=== PATIENT | female | born 1985 | race Caucasian/White ===

== ENCOUNTER 2017-09-26 15:14 | Emergency (ER) | payer OTHER ==
[2017-09-26] MEDS ORDERED: FAMOTIDINE IV 20 MG/12 ML VIAL IVPB ONE (15:22)
--- NOTE | 2017-09-26 15:22 | PDOC ---
Rapid Medical Evaluation Medical Evaluation: 09/26/17 15:16 First time she took naproxen approximately at 13:00, and now with allergic reaction. EMS reports angioedema to face. Reports itching to body and tongue. Given 10mg Dexamethasone and Bendadryl 50mg IV by EMS for swelling of face. Pt. took 50mg benadryl po at home. Exam: No acute respiratory distress, swelling to eyes. CTAB. Pt. will proceed to ED for further evaluation.
[2017-09-26 15:24] VITALS: TEMP 98; BMI 48.2
[2017-09-26] MEDS ORDERED: SODIUM CHLORIDE 1,000 ML IV STA (15:24)
[2017-09-26] MEDS ORDERED: FAMOTIDINE 20 MG/50 ML IVPB 20 MG/50 ML MG IVPB ONE (15:26)
[2017-09-26] MEDS ORDERED: DEXAMETHASONE SOD PHOSPHATE 10 MG/1 ML VIAL ONE (15:32)
[2017-09-26] MEDS ORDERED: methylPREDNISolone NA SUCC 125 MG/2 ML VIAL IVPUSH ONE (16:12)
--- NOTE | 2017-09-26 16:18 | PDOC ---
History of Present Illness - General Chief Complaint: Allergic Reaction Stated Complaint: ALLERGIC REACTION Time Seen by Provider: 09/26/17 15:23 History Source: Patient - History of Present Illness Timing/Duration: 1-3 hours Past History - Past Medical History Allergies/Adverse Reactions: Allergies Allergy/AdvReac Type Severity Reaction Status Date / Time aspirin Allergy Difficulty Verified 09/26/17 15:21 Breathing naproxen Allergy Difficulty Verified 09/26/17 15:21 Breathing NSAIDS (Non-Steroidal Allergy Difficulty Verified 09/26/17 15:21 Anti-Inflamma Breathing Home Medications: Ambulatory Orders EPINEPHrine (EPI-PEN 0.3MG) [Epipen 0.3MG -] 0.3 mg IM ASDIR #2 pens 09/26/17 Famotidine [Pepcid] 20 mg PO DAILY #14 tablet 09/26/17 Prednisone [Deltasone] 20 mg PO DAILY #8 tablet 09/26/17 Asthma: Yes COPD: No - Suicide/Smoking/Psychosocial Hx Smoking History: Never smoked Have you smoked in the past 12 months: No Information on smoking cessation initiated: No Hx Alcohol Use: No Drug/Substance Use Hx: No Substance Use Type: None Review of Systems - Review of Systems HEENTM: No: Throat Pain Respiratory: No: Shortness of Breath, Stridor, Wheezing Cardiac (ROS): No: Chest Pain *Physical Exam - Vital Signs Last Vital Signs Temp Pulse Resp BP Pulse Ox 98.0 F 66 18 123/62 100 09/26/17 15:21 09/26/17 15:21 09/26/17 15:21 09/26/17 15:21 09/26/17 15:21 - Physical Exam General Appearance: Yes: Appropriately Dressed. No: Apparent Distress HEENT: positive: Normal Voice, Other (minimal periorbital edema b/l, no lip/ tongue swelling, oropharynx clear). negative: Muffled/Hoarse voice Neck: positive: Supple. negative: Decreased range of motion, Lymphadenopathy (R ) Respiratory/Chest: positive: Lungs Clear, Normal Breath Sounds. negative: Respiratory Distress, Wheezing Cardiovascular: positive: Regular Rate, S1, S2 Integumentary: negative: Rash Moderate Sedation - Procedure Monitoring Vital Signs: Vital Signs Temp Pulse Resp BP Pulse Ox 98.0 F 66 18 123/62 100 09/26/17 15:21 09/26/17 15:21 09/26/17 15:21 09/26/17 15:21 09/26/17 15:21 ED Treatment Course - Medications Given in the ED: ED Medications Discontinued Medications Generic Name Dose Route Start Last Admin Trade Name Devorah PRN Reason Stop Dose Admin Famotidine 20 mg in 12 mls @ 144 mls/hr 09/26/17 15:22 09/26/17 15:33 Pepcid 20 Mg/12 Ml Push IVPB 09/26/17 15:26 144 mls/hr ONCE ONE Administration Medical Decision Making - Medical Decision Making 09/26/17 16:13 31-year-old female, morbidly obese, status post lower back surgery remotely with chronic back pain, asthma, here with facial swelling that started at 1:30 today after taking naproxen for the first time for her chronic back pain. Patient states she was seen by her PMD 3 days ago who prescribed her naproxen though she alerted MD of her aspirin allergy (facial swelling/angioedema). As per patient, MD informed her that though naproxen is in the same family of asa, that pt should not have an adverse rxn to med. Patient denies any voice changes , throat tightness, tongue swelling, stridor, wheezing, SOB, CP or rash at this time See exam Allergic rxn 2/2 naproxen Known allergy to asa (swelling/angioedema) Stable w/ no stridor and clear chest/lungs Received benadryl, pepcid and IVF at triage -solumedrol -placed on monitor for observation 09/26/17 16:18 09/26/17 18:40 After approximately 2-1/2 hrs of observation, patient remained stable with significant improvement of her periorbital swelling. Clear oropharynx, no stridor and clear chest, lungs. Patient well enough to be discharged with appropriate prescription and EpiPen. Strict return precautions given. Had lengthy discussion with patient, explaining that in the future, she cannot take any NSAIDs including Motrin and naproxen *DC/Admit/Observation/Transfer Diagnosis at time of Disposition: Allergic reaction Qualifiers: Encounter type: initial encounter Qualified Code(s): T78.40XA - Allergy, unspecified, initial encounter - Discharge Dispostion Disposition: HOME Condition at time of disposition: Improved - Prescriptions Prescriptions: EPINEPHrine (EPI-PEN 0.3MG) [Epipen 0.3MG -] 0.3 mg IM ASDIR #2 pens Famotidine [Pepcid] 20 mg PO DAILY #14 tablet Prednisone [Deltasone] 20 mg PO DAILY #8 tablet - Referrals Referrals: Juan Carlos Walls MD [Primary Care Provider] - - Patient Instructions Printed Discharge Instructions: DI for Eye Allergic Reaction Additional Instructions: Por favor, tome pepcid y esteroides a partir de maana, ya que recibi la primera dosis de ambos en ED hoy NO tome naproxeno o motrin en el futuro! Use epipen michael se indica en el empaque para la dificultad para respirar, el cierre de la garganta o las sibilancias y llame al [address] pronto michael pueda Por favor regrese para el empeoramiento de los sntomas - Post Discharge Activity
[2017-09-26] MEDS ORDERED: methylPREDNISolone NA SUCC 125 MG/2 ML VIAL ONE (16:28)
[2017-09-26 18:47] VITALS: BP 105/36; PULSE 69
== END 2017-09-26 18:54 | disposition home or self-care (01) ==
LOC: JER 15:14
PROC: 3E033GC Introduction of Other Therapeutic Substance into Peripheral Vein, Percutaneous Approach (ICD-10-PCS; principal; 2017-09-26)
PROC: 3E0333Z Introduction of Anti-inflammatory into Peripheral Vein, Percutaneous Approach (ICD-10-PCS; 2017-09-26)
DX: T78.40XA Allergy, unspecified, initial encounter (principal); T78.3XXA Angioneurotic edema, initial encounter; J45.909 Unspecified asthma, uncomplicated
CPT/HCPCS: 96374; 96375; 99283-25; J7030

== ENCOUNTER 2018-02-07 19:50 | Inpatient (IN) | payer OTHER ==
--- NOTE | 2018-02-07 20:02 | PDOC ---
*Physical Exam - Vital Signs Last Vital Signs Temp Pulse Resp BP Pulse Ox 98 F 74 18 123/67 98 02/07/18 19:58 02/07/18 19:58 02/07/18 19:58 02/07/18 19:58 02/07/18 19:58
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
[2018-02-07] MEDS ORDERED: diazePAM 5 MG TABLET PO ONE ×2 (20:34→23:19)
[2018-02-07] MEDS ORDERED: ACETAMINOPHEN 500 MG TABLET (FP) PO ONE (20:34)
[2018-02-07] MEDS ORDERED: traMADol HCL 50 MG TABLET PO ONE (20:34)
[2018-02-07] MEDS ORDERED: LIDOCAINE 5% TOPICAL PATCH TP ONE (20:35)
[2018-02-07] MEDS ORDERED: predniSONE 20 MG TABLET (UD) PO ONE (20:35)
[2018-02-07] MEDS ORDERED: predniSONE 20 MG TABLET (UD) ONE (20:42)
[2018-02-07] MEDS ORDERED: traMADol HCL 50 MG TABLET ONE (20:43)
[2018-02-07] MEDS ORDERED: ACETAMINOPHEN 325 MG TABLET (FP) ONE (20:43)
[2018-02-07] MEDS ORDERED: diazePAM 5 MG TABLET ONE (20:43)
[2018-02-07] MEDS ORDERED: LIDOCAINE 5% TOPICAL PATCH ONE (20:43)
[2018-02-07] MEDS ORDERED: oxyCODONE HCL 5 MG TABLET PO ONE ×2 (21:42→23:19)
[2018-02-07] MEDS ORDERED: oxyCODONE HCL 5 MG TABLET ONE (21:48)
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
[2018-02-07] MEDS: LIDOCAINE PATCH REMOVAL MC SCH (22:29)
[2018-02-08] MEDS ORDERED: oxyCODONE HCL 5 MG TABLET ONE (00:46)
[2018-02-08] MEDS ORDERED: diazePAM 5 MG TABLET ONE (00:46)
[2018-02-08 03:01] LABS: BASO % 0.3 % (0-2.0); EOS % 0.2 % (0-4.5); HEMATOCRIT 37.5 % (32.4-45.2); HEMOGLOBIN 12.3 GM/dL (10.7-15.3); LYMPH % 7.2 % (8-40); MCH 28.4 pg (25.7-33.7); MCHC 32.8 g/dl (32.0-36.0); MEAN CELL VOLUME 86.7 fl (80-96); MEAN PLT VOLUME 7.7 fl (7.5-11.1); MONO % 0.8 % (3.8-10.2); NEUT % 91.5 % (42.8-82.8); PLATELET COUNT 479 K/MM3 (134-434); RBC 4.32 M/mm3 (3.60-5.2); RDW 13.6 % (11.6-15.6)
[2018-02-08 03:20] LABS: ANION GAP 8 MMOL/L (8-16); BLOOD UREA NITROGEN 12 mg/dL (7-18); CALCIUM 9.1 mg/dL (8.5-10.1); CHLORIDE 104 mmol/L (98-107); CO2 24 mmol/L (21-32); CREATININE 0.7 mg/dL (0.55-1.3); GLUCOSE,RANDOM 201 mg/dL (74-106); POTASSIUM 4.7 mmol/L (3.5-5.1); SODIUM 135 mmol/L (136-145)
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
[2018-02-08] MEDS ORDERED: morphine SO4 SUSTAINED ACTING 30 MG TABLET.SA PO ONE (05:15)
[2018-02-08 05:52] LABS: PLATELET ESTIMATE SLT INCREASE
[2018-02-08] MEDS ORDERED: ACETAMINOPHEN 325 MG TABLET (FP) PO PRN (06:22)
[2018-02-08] MEDS: BACLOFEN 10 MG TABLET (FP) PO SCH ×3 (06:47→21:02)
[2018-02-08] MEDS: HEPARIN NA (PORCINE) 5,000 UNITS/ML 1ML VIAL SQ SCH ×3 (06:47→21:04)
--- NOTE | 2018-02-08 07:29 | PN ---
Teaching Attending Note Name of Resident: Marko Bailey ATTENDING PHYSICIAN STATEMENT I saw and evaluated the patient. I reviewed the resident's note and discussed the case with the resident. I agree with the resident's findings and plan as documented. 32 y/o morbidly obese female with h/o back pain presented to ED c/o severe back pain after bending down. Patient has paraspinal tenderness in lumbar sacral region, without paresthesia, deficit in motor function or sensation. no incontinence. Admitted for intractable back pain- baclofen 10mg TID, Morphine ER 30mg daily and percocet q6h prn.
[2018-02-08 10:27] LABS: BASO % 0.1 % (0-2.0); LYMPH % 9.8 % (8-40); MCH 28.8 pg (25.7-33.7); MCHC 33.3 g/dl (32.0-36.0); MEAN CELL VOLUME 86.5 fl (80-96); MEAN PLT VOLUME 8.2 fl (7.5-11.1); MONO % 2.6 % (3.8-10.2); NEUT % 87.5 % (42.8-82.8); PLATELET COUNT 469 K/MM3 (134-434); RBC 4.16 M/mm3 (3.60-5.2); RDW 13.7 % (11.6-15.6)
[2018-02-08 10:58] LABS: ANION GAP 9 MMOL/L (8-16); BLOOD UREA NITROGEN 10 mg/dL (7-18); CALCIUM 9.1 mg/dL (8.5-10.1); CHLORIDE 103 mmol/L (98-107); CO2 24 mmol/L (21-32); CREATININE 0.6 mg/dL (0.55-1.3); GLUCOSE,RANDOM 194 mg/dL (74-106); MAGNESIUM 2.3 mg/dL (1.8-2.4); PHOSPHOROUS 3.6 mg/dL (2.5-4.9); POTASSIUM 4.4 mmol/L (3.5-5.1); SODIUM 136 mmol/L (136-145)
[2018-02-08 11:00] LABS: INR 1.13 (0.83-1.09); PROTHROMBIN TIME (PATIENT) 13.4 SEC (9.7-13.0)
[2018-02-08 11:02] LABS: ACTIVATED PTT 26.8 SECONDS (25.2-36.5)
[2018-02-08] MEDS: oxyCODONE HCL 5 MG TABLET PO PRN (11:07)
--- NOTE | 2018-02-08 12:50 | PN ---
Physical Exam: SUBJECTIVE: Patient seen and examined at the bedside. sitting in chair in no acute distress. OBJECTIVE: lumbar spine w/o ordered Vital Signs Period Temp Pulse Resp BP Sys/Bustillos Pulse Ox Last 24 Hr 98 F-98.7 F 69-74 18-18 110-124/49-67 97-99 GENERAL: The patient is awake, alert, and fully oriented, in no acute distress. HEAD: Normal with no signs of trauma. EYES: PERRL, extraocular movements intact, sclera anicteric, conjunctiva clear. No ptosis. ENT: Ears normal, nares patent, oropharynx clear without exudates, moist mucous membranes. NECK: Trachea midline, full range of motion, supple. LUNGS: Breath sounds equal, clear to auscultation bilaterally, no wheezes, no crackles, no accessory muscle use. HEART: Regular rate and rhythm, ABDOMEN: Soft, nontender, nondistended, normoactive bowel sounds, no guarding, no rebound, no hepatosplenomegaly, no masses. EXTREMITIES: 2+ pulses, warm, well-perfused, no edema. NEUROLOGICAL: Cranial nerves II through XII grossly intact. Normal speech, gait not observed. PSYCH: Normal mood, normal affect. SKIN: Warm, dry, normal turgor, no rashes or lesions noted Laboratory Results - last 24 hr 02/08/18 02/08/18 02/08/18 02:50 02:50 02:50 WBC 12.0 H RBC 4.32 Hgb 12.3 Hct 37.5 MCV 86.7 MCH 28.4 MCHC 32.8 RDW 13.6 Plt Count 479 H MPV 7.7 Absolute Neuts (auto) 11.0 H Total Counted 100 Neutrophils % 91.5 H Neutrophils % (Manual) 93.0 H Band Neutrophils % 1.0 Lymphocytes % 7.2 L Lymphocytes % (Manual) 5.0 L Monocytes % 0.8 L Monocytes % (Manual) 1 L Eosinophils % 0.2 Basophils % 0.3 Nucleated RBC % 0 Platelet Estimate Slt increase Platelet Comment No clumping noted PT with INR INR PTT (Actin FS) Sodium 135 L Potassium 4.7 Chloride 104 Carbon Dioxide 24 Anion Gap 8 BUN 12 Creatinine 0.7 Creat Clearance w eGFR > 60 Random Glucose 201 H Calcium 9.1 Phosphorus Magnesium Serum , Qual Negative 02/08/18 02/08/18 02/08/18 09:45 09:45 09:45 WBC 10.0 RBC 4.16 Hgb 12.0 Hct 36.0 MCV 86.5 MCH 28.8 MCHC 33.3 RDW 13.7 Plt Count 469 H MPV 8.2 Absolute Neuts (auto) 8.7 H Total Counted Neutrophils % 87.5 H Neutrophils % (Manual) Band Neutrophils % Lymphocytes % 9.8 D Lymphocytes % (Manual) Monocytes % 2.6 L D Monocytes % (Manual) Eosinophils % 0.0 D Basophils % 0.1 Nucleated RBC % 0 Platelet Estimate Platelet Comment PT with INR 13.40 H INR 1.13 H PTT (Actin FS) 26.8 Sodium 136 Potassium 4.4 Chloride 103 Carbon Dioxide 24 Anion Gap 9 BUN 10 Creatinine 0.6 Creat Clearance w eGFR > 60 Random Glucose 194 H Calcium 9.1 Phosphorus 3.6 Magnesium 2.3 Serum , Qual Active Medications Generic Name Dose Route Start Last Admin Trade Name Freq PRN Reason Stop Dose Admin Acetaminophen 325 mg 02/08/18 06:22 02/08/18 11:06 Tylenol - PO 325 mg Q6H PRN Administration PAIN LEVEL 6-10 Baclofen 10 mg 02/08/18 06:00 02/08/18 06:47 Lioresal - PO 10 mg TID [facility] Administration Heparin Sodium (Porcine) 5,000 unit 02/08/18 06:00 02/08/18 06:47 Heparin - SQ 5,000 unit TID [facility] Administration Miscellaneous 1 each 02/07/18 22:00 02/07/18 22:29 Lidoderm Patch Removal MC Not Given DAILY@2200 [facility] Oxycodone HCl 5 mg 02/08/18 06:22 02/08/18 11:07 Roxicodone - PO 5 mg Q6H PRN Administration PAIN LEVEL 6-10 ASSESSMENT/PLAN: Patient is a 32 year old female with a significant past medical history of obesity, asthma and chronic lower back pain since the age of 18. She presented to the ED on 02/07/18 for c.o of intractable back pain that radiates to her lower extremities. She is having difficulty with all her ADLs secondary to pain. Neuro: Low Back Pain/Lumbar Radiculopathy/difficulty with ambulation Patient has had back pain for years. Had spinal surgery at the age of 19 in [place]. Had recent MRI 7/29/18 that shows: -L3-L4 posterior central disc herniation -L4-L5 broad-based posterior disc herniation with left foraminal extension impinging traversing left L5 and exiting L4 nerve roots. -L5-S1 3mm grade 1 anterolisthesis, posterior disc bulge with bilateral foraminal extension narrowing. -Facet hypertrophy at L5-S1 Will order Baclofen 10mg TID Flexiril Oxycodone physical therapy lumbar spine mri w/o contrast neurosurgery consult. Pulm: Asthma. continue home medications. no in acute exacerbations. fen/prophy tolerating PO monitor electrolytes low salt diet ambulation/PT LOS <48 hours, hold off of a/c full code Visit type - Emergency Visit Emergency Visit: Yes ED Registration Date: 02/07/18 Care time: The patient presented to the Emergency Department on the above date and was hospitalized for further evaluation of their emergent condition. - New Patient This patient is new to me today: Yes Date on this admission: 02/08/18 - Critical Care Critical Care patient: No - Discharge Referral Referred to [facility] Med P.C.: No
[2018-02-08] MEDS ORDERED: traMADol HCL 50 MG TABLET PO PRN (13:56)
[2018-02-08] MEDS ORDERED: PATIENT'S OWN MEDICATION (NON-FORMULARY) (Fluticasone Propionate [Flovent Diskus] 50 MCG) IH SCH (14:00)
[2018-02-08] MEDS: DOCUSATE SODIUM 100 MG CAPSULE (FP) PO SCH ×2 (14:41→21:04)
--- NOTE | 2018-02-08 17:18 | CONSULT ---
Consult - text type - Consultation Consultation Note: NEUROSURGERY CONSULTATION Vicky Corral is a 32 year old Latin female who has a history of Lumbar Laminectomy at L5S1 performed at the age of 19 in [place]. Although she describes severe radicular pain prior to the surgeyr which was somewhat relieved, she has had a long history of back and neck pains as well as intermittent radicular pain. She was in her relative state of good health until 5 days ago when she noticed severe Right gluteal pain which radiates down her Right leg. She has apparently been seeing a variety of pain management physicians and had a Lumbar MRI in November which showed multilevel disease in the Lumbar spine (by report, no images available for review). The patient denies bowel/bladder difficulties and is able to move her legs in bed. Patient will ask her family to bring in the MRI CD, however, this will not reveal the pathology which progressed acutely in the last 5 days and prompted this hospitalization. I feel that we need a new MRI Lumbar without contrast and will discuss treatment options with the patient once this can be compared with the November imaging.
[2018-02-08] MEDS ORDERED: QUEtiapine FUMARATE 25 MG TABLET (FP) ONE (20:26)
[2018-02-08] MEDS: SENNOSIDES 8.6MG TABLET (FP) PO SCH (21:02)
[2018-02-08] MEDS: QUEtiapine FUMARATE 50 MG TABLET PO SCH (21:02)
[2018-02-08] MEDS: MONTELUKAST NA 10 MG TABLET PO SCH (21:03)
[2018-02-08] MEDS: RANITIDINE HCL 150 MG TABLET (FP) PO SCH (21:03)
[2018-02-08] MEDS: POLYETHYLENE GLYCOL 3350 119 GM BTL PO SCH (21:04)
[2018-02-08] MEDS: LIDOCAINE PATCH REMOVAL MC SCH (23:27)
[2018-02-09] MEDS: HEPARIN NA (PORCINE) 5,000 UNITS/ML 1ML VIAL SQ SCH ×3 (06:22→22:00)
[2018-02-09] MEDS: DOCUSATE SODIUM 100 MG CAPSULE (FP) PO SCH ×3 (06:22→21:58)
[2018-02-09] MEDS: BACLOFEN 10 MG TABLET (FP) PO SCH ×3 (06:22→21:59)
[2018-02-09 08:21] LABS: BASO % 0.5 % (0-2.0); EOS % 1.8 % (0-4.5); HEMATOCRIT 33.5 % (32.4-45.2); LYMPH % 32.3 % (8-40); MCH 28.9 pg (25.7-33.7); MCHC 32.9 g/dl (32.0-36.0); MEAN PLT VOLUME 8.1 fl (7.5-11.1); MONO % 7.3 % (3.8-10.2); NEUT % 58.1 % (42.8-82.8); PLATELET COUNT 344 K/MM3 (134-434); RBC 3.81 M/mm3 (3.60-5.2); RDW 13.7 % (11.6-15.6); WHITE BLOOD COUNT 9.2 K/mm3 (4.0-10.0)
[2018-02-09 08:23] LABS: ALBUMIN 3.2 g/dl (3.4-5.0); ALK PHOS 58 U/L (45-117); ANION GAP 6 MMOL/L (8-16); BILIRUBIN,TOTAL 0.5 mg/dL (0.2-1); BLOOD UREA NITROGEN 16 mg/dL (7-18); CALCIUM 8.5 mg/dL (8.5-10.1); CHLORIDE 107 mmol/L (98-107); CO2 26 mmol/L (21-32); CREATININE 0.6 mg/dL (0.55-1.3); GLUCOSE,RANDOM 106 mg/dL (74-106); POTASSIUM 3.8 mmol/L (3.5-5.1); SGOT/AST 11 U/L (15-37); SGPT/ALT 22 U/L (13-61); SODIUM 139 mmol/L (136-145); TOT PROT 6.9 g/dl (6.4-8.2)
[2018-02-09] MEDS: oxyCODONE HCL 5 MG TABLET PO PRN (08:44)
--- NOTE | 2018-02-09 09:12 | PN ---
Progress Note (short form) - Note Progress Note: Patient sitting in chair with severe Right leg radicular pain. MRI pending. Family to bring prior imaging. Will review imaging and discuss plan of care with patient.
[2018-02-09] MEDS: POLYETHYLENE GLYCOL 3350 119 GM BTL PO SCH ×2 (09:51→22:02)
[2018-02-09] MEDS: LORATADINE 10 MG TABLET PO SCH (09:51)
[2018-02-09] MEDS: ESCITALOPRAM OXALATE 10 MG TABLET (FP) PO SCH (09:52)
[2018-02-09] MEDS: CYCLOBENZAPRINE HCL 10 MG TABLET (FP) PO PRN ×2 (10:24→21:59)
[2018-02-09] MEDS ORDERED: MAGNESIUM CITRATE 300 ML BOTTLE PO ONE (15:10)
[2018-02-09] MEDS ORDERED: PT OWN MED DRAWER 7, Y5N ONE (16:37)
[2018-02-09] MEDS: MORPHINE SULFATE 2 MG/ML VIAL IVPUSH PRN (16:43)
--- NOTE | 2018-02-09 17:59 | PN ---
Physical Exam: SUBJECTIVE: Patient seen and examined at the bedside. having back pain, crying in distress when mri unable to be complete secondary to body habitus as patient was unable to keep her arms above her head. OBJECTIVE: Vital Signs Period Temp Pulse Resp BP Sys/Bustillos Pulse Ox Last 24 Hr 98.0 F-98.6 F 59-76 18-20 91-117/40-71 95-98 GENERAL: The patient is awake, alert, and fully oriented, in no acute distress. HEAD: Normal with no signs of trauma. EYES: PERRL, extraocular movements intact, sclera anicteric, conjunctiva clear. No ptosis. ENT: Ears normal, nares patent, oropharynx clear without exudates, moist mucous membranes. NECK: Trachea midline, full range of motion, supple. LUNGS: Breath sounds equal, clear to auscultation bilaterally, no wheezes, no crackles, no accessory muscle use. HEART: Regular rate and rhythm, ABDOMEN: Soft, nontender, nondistended, normoactive bowel sounds, no guarding, no rebound, no hepatosplenomegaly, no masses. EXTREMITIES: 2+ pulses, warm, well-perfused, no edema. NEUROLOGICAL: Cranial nerves II through XII grossly intact. Normal speech, gait not observed. PSYCH: Normal mood, normal affect. SKIN: Warm, dry, normal turgor, no rashes or lesions noted Laboratory Results - last 24 hr 02/09/18 02/09/18 07:30 07:30 WBC 9.2 RBC 3.81 Hgb 11.0 Hct 33.5 MCV 88.0 MCH 28.9 MCHC 32.9 RDW 13.7 Plt Count 344 D MPV 8.1 Absolute Neuts (auto) 5.4 Neutrophils % 58.1 D Lymphocytes % 32.3 D Monocytes % 7.3 D Eosinophils % 1.8 D Basophils % 0.5 D Nucleated RBC % 0 Sodium 139 Potassium 3.8 Chloride 107 Carbon Dioxide 26 Anion Gap 6 L BUN 16 Creatinine 0.6 Creat Clearance w eGFR > 60 Random Glucose 106 Calcium 8.5 Total Bilirubin 0.5 AST 11 L ALT 22 Alkaline Phosphatase 58 Total Protein 6.9 Albumin 3.2 L Active Medications Generic Name Dose Route Start Last Admin Trade Name Freq PRN Reason Stop Dose Admin Acetaminophen 650 mg 02/08/18 13:56 Tylenol Oral Solution - PO BID PRN PAIN LEVEL 4 - 6 Baclofen 10 mg 02/08/18 06:00 02/09/18 15:05 Lioresal - PO 10 mg TID [facility] Administration Cyclobenzaprine HCl 5 mg 02/08/18 14:05 02/09/18 10:24 Flexeril - PO 5 mg BID PRN Administration BACK PAIN Docusate Sodium 100 mg 02/08/18 14:45 02/09/18 15:05 Colace - PO 100 mg TID [facility] Administration Escitalopram Oxalate 10 mg 02/09/18 10:00 02/09/18 09:52 Lexapro - PO 10 mg DAILY [facility] Administration Heparin Sodium (Porcine) 5,000 unit 02/08/18 06:00 02/09/18 15:05 Heparin - SQ 5,000 unit TID [facility] Administration Loratadine 10 mg 02/09/18 10:00 02/09/18 09:51 Claritin - PO 10 mg DAILY [facility] Administration Miscellaneous 1 each 02/07/18 22:00 02/08/18 23:27 Lidoderm Patch Removal MC Not Given DAILY@2200 [facility] Montelukast Sodium 10 mg 02/08/18 22:00 02/08/18 21:03 Singulair - PO 10 mg HS S[facility] Administration Morphine Sulfate 2 mg 02/09/18 15:08 02/09/18 16:43 Morphine Sulfate IVPUSH 2 mg Q6H PRN Administration PAIN LEVEL 7 - 10 Non-Formulary Medication 50 mcg 02/08/18 14:00 Fluticasone Propionate [Flovent Diskus] IH QID S[facility] Polyethylene Glycol 17 gm 02/08/18 22:00 02/09/18 09:51 Miralax (For Daily Use) - PO 17 gm BID S[facility] Administration Quetiapine Fumarate 50 mg 02/08/18 22:00 02/08/18 21:02 Seroquel - PO 50 mg HS S[facility] Administration Ranitidine HCl 150 mg 02/08/18 22:00 02/08/18 21:03 Zantac - PO 150 mg HS S[facility] Administration Senna 2 tab 02/08/18 22:00 02/08/18 21:02 Senna - PO 2 tab HS SUSY Administration ASSESSMENT/PLAN: Patient is a 32 year old female with a significant past medical history of obesity, asthma and chronic lower back pain since the age of 18. She presented to the ED on 02/07/18 for c.o of intractable back pain that radiates to her lower extremities. She is having difficulty with all her ADLs secondary to pain. Neuro: Low Back Pain/Lumbar Radiculopathy/difficulty with ambulation Patient has had back pain for years. Had spinal surgery at the age of 19 in [place]. Had recent MRI 12/03/17 that shows: -L3-L4 posterior central disc herniation -L4-L5 broad-based posterior disc herniation with left foraminal extension impinging traversing left L5 and exiting L4 nerve roots. -L5-S1 3mm grade 1 anterolisthesis, posterior disc bulge with bilateral foraminal extension narrowing. -Facet hypertrophy at L5-S1 Has ordered: Baclofen 10mg TID Flexiril Oxycodone physical therapy lumbar spine mri w/o contrast neurosurgery consult. Pulm: Asthma. continue home medications. no in acute exacerbations. fen/prophy tolerating PO monitor electrolytes low salt diet ambulation/PT Visit type - Emergency Visit Emergency Visit: Yes ED Registration Date: 02/09/18 Care time: The patient presented to the Emergency Department on the above date and was hospitalized for further evaluation of their emergent condition. - New Patient This patient is new to me today: No - Critical Care Critical Care patient: No - Discharge Referral Referred to [facility] Med P.C.: No
[2018-02-09] MEDS ORDERED: QUEtiapine FUMARATE 25 MG TABLET (FP) ONE (21:10)
[2018-02-09] MEDS: MONTELUKAST NA 10 MG TABLET PO SCH (21:58)
[2018-02-09] MEDS: RANITIDINE HCL 150 MG TABLET (FP) PO SCH (21:58)
[2018-02-09] MEDS: QUEtiapine FUMARATE 50 MG TABLET PO SCH (21:59)
[2018-02-09] MEDS: SENNOSIDES 8.6MG TABLET (FP) PO SCH (22:00)
[2018-02-09] MEDS: LIDOCAINE PATCH REMOVAL MC SCH (22:08)
[2018-02-10] MEDS: BACLOFEN 10 MG TABLET (FP) PO SCH ×3 (06:16→21:48)
[2018-02-10] MEDS: DOCUSATE SODIUM 100 MG CAPSULE (FP) PO SCH ×3 (06:16→21:45)
[2018-02-10] MEDS: HEPARIN NA (PORCINE) 5,000 UNITS/ML 1ML VIAL SQ SCH ×3 (06:16→21:44)
[2018-02-10] MEDS: MORPHINE SULFATE 2 MG/ML VIAL IVPUSH PRN ×2 (06:44→16:51)
--- NOTE | 2018-02-10 08:38 | PN ---
Physical Exam: SUBJECTIVE: Patient seen and examined, feels better. pain better controlled. OBJECTIVE: patient to have mri reattempted today. if unable to perform here, will attempt transfer to [facility]. [facility] transfer center called and case discussed. Vital Signs Period Temp Pulse Resp BP Sys/Bustillos Pulse Ox Last 24 Hr 98.2 F-98.7 F 66-82 18-18 103-119/40-71 98-98 GENERAL: The patient is awake, alert, and fully oriented, in no acute distress. HEAD: Normal with no signs of trauma. EYES: PERRL, extraocular movements intact, sclera anicteric, conjunctiva clear. No ptosis. ENT: Ears normal, nares patent, oropharynx clear without exudates, moist mucous membranes. NECK: Trachea midline, full range of motion, supple. LUNGS: Breath sounds equal, clear to auscultation bilaterally, no wheezes, no crackles, no accessory muscle use. HEART: Regular rate and rhythm, ABDOMEN: Soft, nontender, nondistended, normoactive bowel sounds, no guarding, no rebound, no hepatosplenomegaly, no masses. EXTREMITIES: 2+ pulses, warm, well-perfused, no edema. NEUROLOGICAL: Cranial nerves II through XII grossly intact. Normal speech, gait not observed. PSYCH: Normal mood, normal affect. SKIN: Warm, dry, normal turgor, no rashes or lesions noted Laboratory Results - last 24 hr 02/09/18 07:30 WBC 9.2 RBC 3.81 Hgb 11.0 Hct 33.5 MCV 88.0 MCH 28.9 MCHC 32.9 RDW 13.7 Plt Count 344 D MPV 8.1 Absolute Neuts (auto) 5.4 Neutrophils % 58.1 D Lymphocytes % 32.3 D Monocytes % 7.3 D Eosinophils % 1.8 D Basophils % 0.5 D Nucleated RBC % 0 Active Medications Generic Name Dose Route Start Last Admin Trade Name Freq PRN Reason Stop Dose Admin Acetaminophen 650 mg 02/08/18 13:56 Tylenol Oral Solution - PO BID PRN PAIN LEVEL 4 - 6 Baclofen 10 mg 02/08/18 06:00 02/10/18 06:16 Lioresal - PO 10 mg TID [facility] Administration Cyclobenzaprine HCl 5 mg 02/08/18 14:05 02/09/18 21:59 Flexeril - PO 5 mg BID PRN Administration BACK PAIN Docusate Sodium 100 mg 02/08/18 14:45 02/10/18 06:16 Colace - PO 100 mg TID [facility] Administration Escitalopram Oxalate 10 mg 02/09/18 10:00 02/09/18 09:52 Lexapro - PO 10 mg DAILY [facility] Administration Heparin Sodium (Porcine) 5,000 unit 02/08/18 06:00 02/10/18 06:16 Heparin - SQ 5,000 unit TID [facility] Administration Loratadine 10 mg 02/09/18 10:00 02/09/18 09:51 Claritin - PO 10 mg DAILY [facility] Administration Miscellaneous 1 each 02/07/18 22:00 02/09/18 22:08 Lidoderm Patch Removal MC Not Given DAILY@2200 [facility] Montelukast Sodium 10 mg 02/08/18 22:00 02/09/18 21:58 Singulair - PO 10 mg HS S[facility] Administration Morphine Sulfate 2 mg 02/09/18 15:08 02/10/18 06:44 Morphine Sulfate IVPUSH 2 mg Q6H PRN Administration PAIN LEVEL 7 - 10 Non-Formulary Medication 50 mcg 02/08/18 14:00 Fluticasone Propionate [Flovent Diskus] IH QID [facility] Polyethylene Glycol 17 gm 02/08/18 22:00 02/09/18 22:02 Miralax (For Daily Use) - PO 17 gm BID [facility] Administration Quetiapine Fumarate 50 mg 02/08/18 22:00 02/09/18 21:59 Seroquel - PO 50 mg HS [facility] Administration Ranitidine HCl 150 mg 02/08/18 22:00 02/09/18 21:58 Zantac - PO 150 mg HS [facility] Administration Senna 2 tab 02/08/18 22:00 02/09/18 22:00 Senna - PO 2 tab HS [facility] Administration ASSESSMENT/PLAN: Patient is a 32 year old female with a significant past medical history of obesity, asthma and chronic lower back pain since the age of 18. She presented to the ED on 02/07/18 for c.o of intractable back pain that radiates to her lower extremities. She is having difficulty with all her ADLs secondary to pain. Neuro: Low Back Pain/Lumbar Radiculopathy/difficulty with ambulation Patient has had back pain for years. Had spinal surgery at the age of 19 in [place]. Had recent MRI 12/03/17 that shows: -L3-L4 posterior central disc herniation -L4-L5 broad-based posterior disc herniation with left foraminal extension impinging traversing left L5 and exiting L4 nerve roots. -L5-S1 3mm grade 1 anterolisthesis, posterior disc bulge with bilateral foraminal extension narrowing. -Facet hypertrophy at L5-S1 Has ordered: Baclofen 10mg TID Flexiril Oxycodone physical therapy lumbar spine mri w/o contrast neurosurgery consult. Patient was unable to tolerate MRI yesterday, will re-attempt today. If unable to perform, will initiate transfer to [facility]. Discussed plan with patient and she is in agreement. Transfer center at [facility] called and paperwork faxed to me. Pulm: Asthma. continue home medications. no in acute exacerbations. fen/prophy tolerating PO monitor electrolytes low salt diet ambulation/PT Visit type - Emergency Visit Emergency Visit: Yes ED Registration Date: 02/09/18 Care time: The patient presented to the Emergency Department on the above date and was hospitalized for further evaluation of their emergent condition. - New Patient This patient is new to me today: No - Critical Care Critical Care patient: No - Discharge Referral Referred to [facility] Med P.C.: No
[2018-02-10] MEDS: ESCITALOPRAM OXALATE 10 MG TABLET (FP) PO SCH (10:38)
[2018-02-10] MEDS: LORATADINE 10 MG TABLET PO SCH (10:38)
[2018-02-10] MEDS: POLYETHYLENE GLYCOL 3350 119 GM BTL PO SCH ×2 (10:38→21:48)
--- NOTE | 2018-02-10 12:11 | PN ---
Progress Note (short form) - Note Progress Note: Patient remains stable. MRI not possible due to geometric concerns. Still unable to review outside MRI from November.
[2018-02-10] MEDS: LIDOCAINE 5% TOPICAL PATCH TP SCH (16:43)
[2018-02-10] MEDS ORDERED: QUEtiapine FUMARATE 25 MG TABLET (FP) ONE (21:02)
[2018-02-10] MEDS: LIDOCAINE PATCH REMOVAL MC SCH ×2 (21:45→21:46)
[2018-02-10] MEDS: MONTELUKAST NA 10 MG TABLET PO SCH (21:46)
[2018-02-10] MEDS: SENNOSIDES 8.6MG TABLET (FP) PO SCH (21:46)
[2018-02-10] MEDS: RANITIDINE HCL 150 MG TABLET (FP) PO SCH (21:46)
[2018-02-10] MEDS: QUEtiapine FUMARATE 50 MG TABLET PO SCH (21:47)
[2018-02-11] MEDS: DOCUSATE SODIUM 100 MG CAPSULE (FP) PO SCH ×3 (05:44→21:52)
[2018-02-11] MEDS: HEPARIN NA (PORCINE) 5,000 UNITS/ML 1ML VIAL SQ SCH ×3 (05:44→21:50)
[2018-02-11] MEDS: BACLOFEN 10 MG TABLET (FP) PO SCH ×3 (05:45→21:50)
[2018-02-11] MEDS: CYCLOBENZAPRINE HCL 10 MG TABLET (FP) PO PRN ×2 (05:50→19:29)
[2018-02-11 09:36] LABS: BASO % 0.4 % (0-2.0); EOS % 2.6 % (0-4.5); HEMATOCRIT 34.4 % (32.4-45.2); HEMOGLOBIN 11.2 GM/dL (10.7-15.3); LYMPH % 19.3 % (8-40); MCH 28.3 pg (25.7-33.7); MCHC 32.5 g/dl (32.0-36.0); MEAN CELL VOLUME 87.3 fl (80-96); MEAN PLT VOLUME 8.1 fl (7.5-11.1); MONO % 7.9 % (3.8-10.2); NEUT % 69.8 % (42.8-82.8); PLATELET COUNT 330 K/MM3 (134-434); RBC 3.95 M/mm3 (3.60-5.2); RDW 13.6 % (11.6-15.6); WHITE BLOOD COUNT 8.2 K/mm3 (4.0-10.0)
[2018-02-11] MEDS: LORATADINE 10 MG TABLET PO SCH (10:26)
[2018-02-11] MEDS: LIDOCAINE 5% TOPICAL PATCH TP SCH (10:26)
[2018-02-11] MEDS: ESCITALOPRAM OXALATE 10 MG TABLET (FP) PO SCH (10:26)
[2018-02-11] MEDS: POLYETHYLENE GLYCOL 3350 119 GM BTL PO SCH ×2 (10:28→21:50)
[2018-02-11 10:32] LABS: ALBUMIN 3.3 g/dl (3.4-5.0); ALK PHOS 68 U/L (45-117); ANION GAP 9 MMOL/L (8-16); BILIRUBIN,TOTAL 0.7 mg/dL (0.2-1); BLOOD UREA NITROGEN 10 mg/dL (7-18); CHLORIDE 103 mmol/L (98-107); CO2 26 mmol/L (21-32); CREATININE 0.5 mg/dL (0.55-1.3); GLUCOSE,RANDOM 113 mg/dL (74-106); MAGNESIUM 2.3 mg/dL (1.8-2.4); POTASSIUM 4.1 mmol/L (3.5-5.1); SGOT/AST 20 U/L (15-37); SGPT/ALT 31 U/L (13-61); SODIUM 138 mmol/L (136-145)
[2018-02-11] MEDS: MORPHINE SULFATE 2 MG/ML VIAL IVPUSH PRN (13:14)
[2018-02-11 14:53] VITALS: BMI 48.2
--- NOTE | 2018-02-11 16:13 | PN ---
Progress Note (short form) - Note Progress Note: Patient continues to have Right lower extremity radicular pain and associated back pain and difficulty standing straight. Was able to review MRI from this morning and from November. No acute changes or large HNP. Mild, mostly chronic, degenerative changes noted. Since patient has one week of severe pain, hopefully no surgery will be required. Patient will likely improve with conservative management. No acute Neurosurgical intervention is mandated or planned. Patient may benefit from REGAN. Course of care and imaging findings discussed with patient. All questions answered.
--- NOTE | 2018-02-11 18:56 | PN ---
Physical Exam: SUBJECTIVE: Patient seen and examined at the bedside. feels better today, pain more controlled. Was able to tolerate MRI today. Discussed findings with Dr. Childers. Patient unable to walk more than 10 feet, pain management consulted. may need rehab if no improvement. OBJECTIVE: Vital Signs Period Temp Pulse Resp BP Sys/Bustillos Pulse Ox Last 24 Hr 97.8 F-98.6 F 69-97 18-20 94-128/45-76 99-99 GENERAL: The patient is awake, alert, and fully oriented, in no acute distress. HEAD: Normal with no signs of trauma. EYES: PERRL, extraocular movements intact, sclera anicteric, conjunctiva clear. No ptosis. ENT: Ears normal, nares patent, oropharynx clear without exudates, moist mucous membranes. NECK: Trachea midline, full range of motion, supple. LUNGS: Breath sounds equal, clear to auscultation bilaterally, no wheezes, no crackles, no accessory muscle use. HEART: Regular rate and rhythm, ABDOMEN: Soft, nontender, nondistended, normoactive bowel sounds, no guarding, no rebound, no hepatosplenomegaly, no masses. EXTREMITIES: 2+ pulses, warm, well-perfused, no edema. NEUROLOGICAL: Cranial nerves II through XII grossly intact. Normal speech, gait not observed. PSYCH: Normal mood, normal affect. SKIN: Warm, dry, normal turgor, no rashes or lesions noted Laboratory Results - last 24 hr 02/11/18 02/11/18 08:54 08:54 WBC 8.2 RBC 3.95 Hgb 11.2 Hct 34.4 MCV 87.3 MCH 28.3 MCHC 32.5 RDW 13.6 Plt Count 330 MPV 8.1 Absolute Neuts (auto) 5.7 Neutrophils % 69.8 D Lymphocytes % 19.3 D Monocytes % 7.9 Eosinophils % 2.6 Basophils % 0.4 Nucleated RBC % 0 Sodium 138 Potassium 4.1 Chloride 103 Carbon Dioxide 26 Anion Gap 9 BUN 10 Creatinine 0.5 L Creat Clearance w eGFR > 60 Random Glucose 113 H Calcium 9.0 Magnesium 2.3 Total Bilirubin 0.7 AST 20 ALT 31 Alkaline Phosphatase 68 Total Protein 7.0 Albumin 3.3 L Active Medications Generic Name Dose Route Start Last Admin Trade Name Freq PRN Reason Stop Dose Admin Acetaminophen 650 mg 02/08/18 13:56 Tylenol Oral Solution - PO BID PRN PAIN LEVEL 4 - 6 Baclofen 10 mg 02/08/18 06:00 02/11/18 13:15 Lioresal - PO 10 mg TID [facility] Administration Cyclobenzaprine HCl 5 mg 02/08/18 14:05 02/11/18 05:50 Flexeril - PO 5 mg BID PRN Administration BACK PAIN Docusate Sodium 100 mg 02/08/18 14:45 02/11/18 13:15 Colace - PO 100 mg TID [facility] Administration Escitalopram Oxalate 10 mg 02/09/18 10:00 02/11/18 10:26 Lexapro - PO 10 mg DAILY [facility] Administration Heparin Sodium (Porcine) 5,000 unit 02/08/18 06:00 02/11/18 13:14 Heparin - SQ 5,000 unit TID [facility] Administration Lidocaine 1 patch 02/10/18 15:30 02/11/18 10:26 Lidoderm Patch - TP 1 patch DAILY [facility] Administration Loratadine 10 mg 02/09/18 10:00 02/11/18 10:26 Claritin - PO 10 mg DAILY [facility] Administration Miscellaneous 1 each 02/07/18 22:00 02/10/18 21:45 Lidoderm Patch Removal MC 1 each DAILY@2200 [facility] Administration Miscellaneous 1 each 02/10/18 22:00 02/10/18 21:46 Lidoderm Patch Removal MC 1 each DAILY@2200 [facility] Administration Montelukast Sodium 10 mg 02/08/18 22:00 02/10/18 21:46 Singulair - PO 10 mg HS [facility] Administration Morphine Sulfate 2 mg 02/09/18 15:08 02/11/18 13:14 Morphine Sulfate IVPUSH 2 mg Q6H PRN Administration PAIN LEVEL 7 - 10 Non-Formulary Medication 50 mcg 02/08/18 14:00 Fluticasone Propionate [Flovent Diskus] IH QID [facility] Polyethylene Glycol 17 gm 02/08/18 22:00 02/11/18 10:28 Miralax (For Daily Use) - PO 17 gm BID [facility] Administration Quetiapine Fumarate 50 mg 02/08/18 22:00 02/10/18 21:47 Seroquel - PO 50 mg HS [facility] Administration Ranitidine HCl 150 mg 02/08/18 22:00 02/10/18 21:46 Zantac - PO 150 mg HS [facility] Administration Senna 2 tab 02/08/18 22:00 02/10/18 21:46 Senna - PO 2 tab HS [facility] Administration Imaging: lumbar spine mri: straightening of the LS without compression fracture, subluxation or bone marrow edema. mild bilateral facet hypertrophy from l3-l4 down to l5-s1 level. mild mainly central and left paracentral discl bulge at l3 -l4 w.o gross nerve root impingement. mild broad based disc bulge at l4-l5 level slightly deforming surface of the thecal sac and slightly narrowing the foramina without gross nerve root impingement. small uterine fibroid. ASSESSMENT/PLAN: Patient is a 32 year old female with a significant past medical history of obesity, asthma and chronic lower back pain since the age of 18. She presented to the ED on 02/07/18 for c.o of intractable back pain that radiates to her lower extremities. She is having difficulty with all her ADLs and with ambulation secondary to pain. Problem list: Poor functional status secondary to immobility secondary to back pain Low back pain/lumbar radicupathy/difficulty ambulating Morbid obesity Asthma Neuro: Low Back Pain/Lumbar Radiculopathy/difficulty with ambulation. acute on chronic Patient has had back pain for years. Had spinal surgery at the age of 19 in [place]. Had recent outpatient MRI 12/03/17 that shows: -L3-L4 posterior central disc herniation -L4-L5 broad-based posterior disc herniation with left foraminal extension impinging traversing left L5 and exiting L4 nerve roots. -L5-S1 3mm grade 1 anterolisthesis, posterior disc bulge with bilateral foraminal extension narrowing. -Facet hypertrophy at L5-S1 MRI done here as noted above. Neurosurgery following. pain management consulted. Patient aware she may need rehab. Has ordered for pain: Baclofen 10mg TID Flexiril Oxycodone physical therapy Pulm: Asthma. continue home medications. no in acute exacerbations. Morbid obesity. patient seeking outpatient bariatric surgical options. was at once a candidate for gastric sleeve. fen/prophy tolerating PO monitor electrolytes low salt diet ambulation/PT full code Visit type - Emergency Visit Emergency Visit: Yes ED Registration Date: 02/09/18 Care time: The patient presented to the Emergency Department on the above date and was hospitalized for further evaluation of their emergent condition. - New Patient This patient is new to me today: No - Critical Care Critical Care patient: No - Discharge Referral Referred to [facility] Med P.C.: No
[2018-02-11] MEDS ORDERED: QUEtiapine FUMARATE 25 MG TABLET (FP) ONE (21:05)
[2018-02-11] MEDS: RANITIDINE HCL 150 MG TABLET (FP) PO SCH (21:51)
[2018-02-11] MEDS: SENNOSIDES 8.6MG TABLET (FP) PO SCH (21:51)
[2018-02-11] MEDS: MONTELUKAST NA 10 MG TABLET PO SCH (21:51)
[2018-02-11] MEDS: QUEtiapine FUMARATE 50 MG TABLET PO SCH (21:52)
[2018-02-11] MEDS: LIDOCAINE PATCH REMOVAL MC SCH ×2 (22:10→22:11)
[2018-02-12] MEDS: HEPARIN NA (PORCINE) 5,000 UNITS/ML 1ML VIAL SQ SCH ×3 (05:08→21:47)
[2018-02-12] MEDS: BACLOFEN 10 MG TABLET (FP) PO SCH ×3 (05:08→21:48)
[2018-02-12] MEDS: DOCUSATE SODIUM 100 MG CAPSULE (FP) PO SCH ×3 (05:09→21:48)
[2018-02-12] MEDS: LIDOCAINE 5% TOPICAL PATCH TP SCH (10:28)
[2018-02-12] MEDS: LORATADINE 10 MG TABLET PO SCH (10:28)
[2018-02-12] MEDS: ESCITALOPRAM OXALATE 10 MG TABLET (FP) PO SCH (10:28)
[2018-02-12] MEDS: POLYETHYLENE GLYCOL 3350 119 GM BTL PO SCH ×2 (10:28→21:50)
--- NOTE | 2018-02-12 19:22 | PN ---
Physical Exam: SUBJECTIVE: Patient seen and examined at the bedside. Still having severe back pain that radiates down to her legs OBJECTIVE: ambulated 10 feet today, awaiting pain specialist consulted called in by me to Dr. Lopez's office. RN also called consult in. May need steriod injections in order to ambuate. Vital Signs Period Temp Pulse Resp BP Sys/Bustillos Pulse Ox Last 24 Hr 98.1 F-98.6 F 83-90 18-20 96-117/54-68 97-99 GENERAL: The patient is awake, alert, and fully oriented, in no acute distress. HEAD: Normal with no signs of trauma. EYES: PERRL, extraocular movements intact, sclera anicteric, conjunctiva clear. No ptosis. ENT: Ears normal, nares patent, oropharynx clear without exudates, moist mucous membranes. NECK: Trachea midline, full range of motion, supple. LUNGS: Breath sounds equal, clear to auscultation bilaterally, no wheezes, no crackles, no accessory muscle use. HEART: Regular rate and rhythm, ABDOMEN: Soft, nontender, nondistended, normoactive bowel sounds, no guarding, no rebound, no hepatosplenomegaly, no masses. PSYCH: Normal mood, normal affect. SKIN: Warm, dry, normal turgor, no rashes or lesions noted Active Medications Generic Name Dose Route Start Last Admin Trade Name Freq PRN Reason Stop Dose Admin Acetaminophen 650 mg 02/08/18 13:56 Tylenol Oral Solution - PO BID PRN PAIN LEVEL 4 - 6 Baclofen 10 mg 02/08/18 06:00 02/12/18 13:10 Lioresal - PO 10 mg TID SUSY Administration Cyclobenzaprine HCl 5 mg 02/08/18 14:05 02/11/18 19:29 Flexeril - PO 5 mg BID PRN Administration BACK PAIN Docusate Sodium 100 mg 02/08/18 14:45 02/12/18 13:10 Colace - PO 100 mg TID SUSY Administration Escitalopram Oxalate 10 mg 02/09/18 10:00 02/12/18 10:28 Lexapro - PO 10 mg DAILY SUSY Administration Heparin Sodium (Porcine) 5,000 unit 02/08/18 06:00 02/12/18 13:10 Heparin - SQ 5,000 unit TID SUSY Administration Influenza Virus Vaccine Quadrival 60 mcg 02/12/18 18:52 Flulaval Quad [id number] IM 02/12/18 18:53 .ONCE ONE Lidocaine 1 patch 02/10/18 15:30 02/12/18 10:28 Lidoderm Patch - TP 1 patch DAILY SUSY Administration Loratadine 10 mg 02/09/18 10:00 02/12/18 10:28 Claritin - PO 10 mg DAILY SUSY Administration Miscellaneous 1 each 02/07/18 22:00 02/11/18 22:10 Lidoderm Patch Removal MC 1 each DAILY@2200 SUSY Administration Miscellaneous 1 each 02/10/18 22:00 02/11/18 22:11 Lidoderm Patch Removal MC 1 each DAILY@2200 SUSY Administration Montelukast Sodium 10 mg 02/08/18 22:00 02/11/18 21:51 Singulair - PO 10 mg HS SUSY Administration Morphine Sulfate 2 mg 02/09/18 15:08 02/11/18 13:14 Morphine Sulfate IVPUSH 2 mg Q6H PRN Administration PAIN LEVEL 7 - 10 Polyethylene Glycol 17 gm 02/08/18 22:00 02/12/18 10:28 Miralax (For Daily Use) - PO Not Given BID SUSY Quetiapine Fumarate 50 mg 02/08/18 22:00 02/11/18 21:52 Seroquel - PO 50 mg HS SUSY Administration Ranitidine HCl 150 mg 02/08/18 22:00 02/11/18 21:51 Zantac - PO 150 mg HS SUSY Administration Senna 2 tab 02/08/18 22:00 02/11/18 21:51 Senna - PO 2 tab HS SUSY Administration Imaging: lumbar spine mri: straightening of the LS without compression fracture, subluxation or bone marrow edema. mild bilateral facet hypertrophy from l3-l4 down to l5-s1 level. mild mainly central and left paracentral discl bulge at l3 -l4 w.o gross nerve root impingement. mild broad based disc bulge at l4-l5 level slightly deforming surface of the thecal sac and slightly narrowing the foramina without gross nerve root impingement. small uterine fibroid. ASSESSMENT/PLAN: Patient is a 32 year old female with a significant past medical history of morbid obesity, asthma and chronic lower back pain since the age of 18. She presented to the ED on 02/07/18 for c.o of intractable back pain that radiates to her lower extremities. She is having difficulty with all her ADLs and with ambulation secondary to pain. Problem list: Poor functional status secondary to immobility secondary to back pain Low back pain/lumbar radicupathy/difficulty ambulating Morbid obesity Asthma Neuro: Low Back Pain/Lumbar Radiculopathy/difficulty with ambulation. acute on chronic Patient has had back pain for years. Had spinal surgery at the age of 19 in [place]. Had recent outpatient MRI 12/03/17 that shows: -L3-L4 posterior central disc herniation -L4-L5 broad-based posterior disc herniation with left foraminal extension impinging traversing left L5 and exiting L4 nerve roots. -L5-S1 3mm grade 1 anterolisthesis, posterior disc bulge with bilateral foraminal extension narrowing. -Facet hypertrophy at L5-S1 MRI done here as noted above. Neurosurgery following. pain management consulted. Patient unable to ambulate more than 10 feet. Awaiting further recommendation from Dr. Morris, supervisor paint also consulted. Pulm: Asthma. continue home medications. no in acute exacerbations. Morbid obesity. patient seeking outpatient bariatric surgical options. was at once a candidate for gastric sleeve. fen/prophy tolerating PO monitor electrolytes low salt diet ambulation/PT Discharge likely tomorrow pending neurosurgery and supervisor paint recommendations. Visit type - Emergency Visit Emergency Visit: Yes ED Registration Date: 02/09/18 Care time: The patient presented to the Emergency Department on the above date and was hospitalized for further evaluation of their emergent condition. - New Patient This patient is new to me today: No - Critical Care Critical Care patient: No - Discharge Referral Referred to [facility] Med P.C.: No
[2018-02-12] MEDS ORDERED: FLU VACCINE QUAD 60 MCG/0.5 ML (MDV 18-19) IM ONE (19:45)
[2018-02-12] MEDS ORDERED: QUEtiapine FUMARATE 25 MG TABLET (FP) ONE (21:26)
[2018-02-12] MEDS: SENNOSIDES 8.6MG TABLET (FP) PO SCH (21:48)
[2018-02-12] MEDS: RANITIDINE HCL 150 MG TABLET (FP) PO SCH (21:48)
[2018-02-12] MEDS: LIDOCAINE PATCH REMOVAL MC SCH ×2 (21:48)
[2018-02-12] MEDS: MONTELUKAST NA 10 MG TABLET PO SCH (21:48)
[2018-02-12] MEDS: QUEtiapine FUMARATE 50 MG TABLET PO SCH (21:49)
[2018-02-13] MEDS: HEPARIN NA (PORCINE) 5,000 UNITS/ML 1ML VIAL SQ SCH ×3 (05:55→23:06)
[2018-02-13] MEDS: BACLOFEN 10 MG TABLET (FP) PO SCH ×3 (05:55→23:06)
[2018-02-13] MEDS: DOCUSATE SODIUM 100 MG CAPSULE (FP) PO SCH ×3 (06:07→23:06)
[2018-02-13] MEDS: ESCITALOPRAM OXALATE 10 MG TABLET (FP) PO SCH (10:00)
[2018-02-13] MEDS: LORATADINE 10 MG TABLET PO SCH (10:00)
[2018-02-13] MEDS: POLYETHYLENE GLYCOL 3350 119 GM BTL PO SCH ×2 (10:01→23:22)
[2018-02-13] MEDS: LIDOCAINE 5% TOPICAL PATCH TP SCH (10:01)
--- NOTE | 2018-02-13 14:44 | DS ---
Physical Exam: SUBJECTIVE: Patient seen and examined OBJECTIVE: Vital Signs Period Temp Pulse Resp BP Sys/Bustillos Pulse Ox Last 24 Hr 98.0 F-98.8 F 61-95 18-20 96-121/49-67 98-99 PHYSICAL EXAM GENERAL: The patient is awake, alert, and fully oriented, in no acute distress. HEAD: Normal with no signs of trauma. EYES: PERRL, extraocular movements intact, sclera anicteric, conjunctiva clear. ENT: Ears normal, nares patent, oropharynx clear without exudates, moist mucous membranes. NECK: Trachea midline, full range of motion, supple. LUNGS: Breath sounds equal, clear to auscultation bilaterally, no wheezes, no crackles, no accessory muscle use. HEART: Regular rate and rhythm, S1, S2 without murmur, rub or gallop. ABDOMEN: Soft, nontender, nondistended, normoactive bowel sounds, no guarding, no rebound, no hepatosplenomegaly, no masses. EXTREMITIES: 2+ pulses, warm, well-perfused, no edema. NEUROLOGICAL: Cranial nerves II through XII grossly intact. Normal speech, gait not observed. PSYCH: Normal mood, normal affect. SKIN: Warm, dry, normal turgor, no rashes or lesions noted. LABS HOSPITAL COURSE: Date of Admission:02/09/18 Date of Discharge: 02/13/18 Discharge Summary Reason For Visit: LOW BACK PAIN Current Active Problems Low back pain radiating to left lower extremity (Acute) Condition: Stable - Instructions Referrals: Rubio Peck MD [Staff Physician] - Juan Carlos Walls MD [Primary Care Provider] - - Home Medications Comprehensive Discharge Medication List: Ambulatory Orders Cyclobenzaprine HCl [Flexeril -] 10 mg PO TID 02/07/18 Tramadol HCl 50 mg PO DAILY 02/07/18 Acetaminophen [Mapap] 650 mg PO BID 02/08/18 Cyclobenzaprine HCl [Flexeril -] 5 mg PO BID 02/08/18 Ergocalciferol (Vitamin D2) [Vitamin D2] 50,000 unit PO WEEKLY 02/08/18 Escitalopram Oxalate [Lexapro -] 10 mg PO DAILY 02/08/18 Famotidine [Pepcid] 20 mg PO HS 02/08/18 Fluticasone Propionate [Flovent Diskus] 50 mcg IH QID 02/08/18 Loratadine [Claritin] 10 mg PO DAILY 02/08/18 Montelukast Sodium [Singulair] 10 mg PO HS 02/08/18 Omeprazole 20 mg PO DAILY 02/08/18 Quetiapine Fumarate [Seroquel -] 50 mg PO HS 02/08/18 Tramadol HCl/Acetaminophen [Tramadol-Acetaminophn 37.5-325] 1 each PO BID - Discharge Referral Referred to [facility] Med P.C.: No
--- NOTE | 2018-02-13 21:18 | CONSULT ---
Consult Consult Specialty:: pain medicine Referred by:: primary Reason for Consultation:: backpain - History of Present Illness Chief Complaint: back pain History of Present Illness: 32 y/o female presenting with severe back and right leg. Patient is unable to walk due to pain. Pain score10/10 Medical Hx: - Asthma - Anxiety Surgical Hx: - Unknown type of back surgery in L4-L5. Age 19 - Past Medical History ...: No - Alcohol/Substance Use Hx Alcohol Use: No - Smoking History Smoking history: Never smoked Have you smoked in the past 12 months: No Home Medications - Allergies Allergies/Adverse Reactions: Allergies Allergy/AdvReac Type Severity Reaction Status Date / Time aspirin Allergy Difficulty Verified 02/07/18 20:00 Breathing naproxen Allergy Difficulty Verified 02/07/18 20:00 Breathing NSAIDS (Non-Steroidal Allergy Difficulty Verified 02/07/18 20:00 Anti-Inflamma Breathing - Home Medications Home Medications: Ambulatory Orders Cyclobenzaprine HCl [Flexeril -] 10 mg PO TID 02/07/18 Tramadol HCl 50 mg PO DAILY 02/07/18 Cyclobenzaprine HCl [Flexeril -] 5 mg PO BID 02/08/18 Ergocalciferol (Vitamin D2) [Vitamin D2] 50,000 unit PO WEEKLY 02/08/18 Escitalopram Oxalate [Lexapro -] 10 mg PO DAILY 02/08/18 Famotidine [Pepcid] 20 mg PO HS 02/08/18 Fluticasone Propionate [Flovent Diskus] 50 mcg IH QID 02/08/18 Loratadine [Claritin] 10 mg PO DAILY 02/08/18 Montelukast Sodium [Singulair] 10 mg PO HS 02/08/18 Omeprazole 20 mg PO DAILY 02/08/18 Quetiapine Fumarate [Seroquel -] 50 mg PO HS 02/08/18 Tramadol HCl/Acetaminophen [Tramadol-Acetaminophn 37.5-325] 1 each PO BID Lidocaine 5% Patch [Lidoderm -] 1 patch TP DAILY patch 02/13/18 Lidocaine Patch Removal [Lidoderm Patch Removal] 1 each MC DAILY@2200 each 01/23 Physical Exam Vital Signs: Vital Signs Temperature 98.3 F 02/13/18 18:00 Pulse Rate 88 02/13/18 18:00 Respiratory Rate 20 02/13/18 18:00 Blood Pressure 111/55 L 02/13/18 18:00 O2 Sat by Pulse Oximetry (%) 98 02/13/18 09:00 Musculoskeletal: Yes: Other (pos slr at 30 deg on right decreased rom of lumbar spine) Labs: CBC, BMP 02/11/18 08:54 02/11/18 08:54 Assessment/Plan Lumbar radiculopathy secondary to disc herniation 1. I will try to perform an REGAN on the patient tomorrow 02/14 or 02/15 2. Please hold heparin tomorrow
[2018-02-13] MEDS ORDERED: QUEtiapine FUMARATE 25 MG TABLET (FP) ONE (21:26)
--- NOTE | 2018-02-13 21:35 | PN ---
Progress Note (short form) - Note Progress Note: Patient remains unchanged. Appreciate Dr. Peck's consultation and agree with plans for REGAN.
--- NOTE | 2018-02-13 21:42 | PN ---
Physical Exam: SUBJECTIVE: Patient seen and examined. Complaining of continuous back pain. OBJECTIVE: Vital Signs Period Temp Pulse Resp BP Sys/Bustillos Pulse Ox Last 24 Hr 98.0 F-98.8 F 61-95 18-20 96-121/49-67 98 GENERAL: The patient is awake, alert, and fully oriented, in no acute distress. HEAD: Normal with no signs of trauma. EYES: PERRL, extraocular movements intact, sclera anicteric, conjunctiva clear. No ptosis. ENT: Ears normal, nares patent, oropharynx clear without exudates, moist mucous membranes. NECK: Trachea midline, full range of motion, supple. LUNGS: Breath sounds equal, clear to auscultation bilaterally, no wheezes, no crackles, no accessory muscle use. HEART: Regular rate and rhythm, S1, S2 without murmur, rub or gallop. ABDOMEN: Soft, nontender, nondistended, normoactive bowel sounds, no guarding, no rebound, no hepatosplenomegaly, no masses. EXTREMITIES: 2+ pulses, warm, well-perfused, no edema. NEUROLOGICAL: Cranial nerves II through XII grossly intact. Normal speech, gait not observed. PSYCH: Normal mood, normal affect. SKIN: Warm, dry, normal turgor, no rashes or lesions noted Active Medications Generic Name Dose Route Start Last Admin Trade Name Freq PRN Reason Stop Dose Admin Acetaminophen 650 mg 02/08/18 13:56 Tylenol Oral Solution - PO BID PRN PAIN LEVEL 4 - 6 Baclofen 10 mg 02/08/18 06:00 02/13/18 14:01 Lioresal - PO 10 mg TID SUSY Administration Cyclobenzaprine HCl 5 mg 02/08/18 14:05 02/11/18 19:29 Flexeril - PO 5 mg BID PRN Administration BACK PAIN Docusate Sodium 100 mg 02/08/18 14:45 02/13/18 14:01 Colace - PO 100 mg TID SUSY Administration Escitalopram Oxalate 10 mg 02/09/18 10:00 02/13/18 10:00 Lexapro - PO 10 mg DAILY SUSY Administration Heparin Sodium (Porcine) 5,000 unit 02/08/18 06:00 02/13/18 14:01 Heparin - SQ 5,000 unit TID SUSY Administration Lidocaine 1 patch 02/10/18 15:30 02/13/18 10:01 Lidoderm Patch - TP 1 patch DAILY SUSY Administration Loratadine 10 mg 02/09/18 10:00 02/13/18 10:00 Claritin - PO 10 mg DAILY USSY Administration Miscellaneous 1 each 02/07/18 22:00 02/12/18 21:48 Lidoderm Patch Removal MC 1 each DAILY@2200 SUSY Administration Miscellaneous 1 each 02/10/18 22:00 02/12/18 21:48 Lidoderm Patch Removal MC 1 each DAILY@2200 SUSY Administration Montelukast Sodium 10 mg 02/08/18 22:00 02/12/18 21:48 Singulair - PO 10 mg HS SUSY Administration Morphine Sulfate 2 mg 02/09/18 15:08 02/11/18 13:14 Morphine Sulfate IVPUSH 2 mg Q6H PRN Administration PAIN LEVEL 7 - 10 Polyethylene Glycol 17 gm 02/08/18 22:00 02/13/18 10:01 Miralax (For Daily Use) - PO Not Given BID SUSY Quetiapine Fumarate 50 mg 02/08/18 22:00 02/12/18 21:49 Seroquel - PO 50 mg HS SUSY Administration Ranitidine HCl 150 mg 02/08/18 22:00 02/12/18 21:48 Zantac - PO 150 mg HS SUSY Administration Senna 2 tab 02/08/18 22:00 02/12/18 21:48 Senna - PO 2 tab HS SUSY Administration Imaging: MRI LS: straightening of the LS without compression fracture, subluxation or bone marrow edema. mild bilateral facet hypertrophy from l3-l4 down to l5-s1 level. mild mainly central and left paracentral discl bulge at l3-l4 w.o gross nerve root impingement. mild broad based disc bulge at l4-l5 level slightly deforming surface of the thecal sac and slightly narrowing the foramina without gross nerve root impingement. small uterine fibroid. ASSESSMENT/PLAN: 32 year-old female with a PMH significant for lumbar laminectomy L5-S1 age 19 in [place]. Admitted for severe right-sided radicular pain. Degenerative lumbar disc disease --seen and evaluated by neurosurgery Dr. Ordoñez, no surgical intervention planned at this time, conservative management --continue baclofen, flexeril, morphine --pending evaluation by pain management for possible epidural steroid injection Asthma --stable DVT prophylaxis: subq heparin Physical therapy Dispo: continues to require inapatient care. Full code. Visit type - Emergency Visit Emergency Visit: Yes ED Registration Date: 02/09/18 Care time: The patient presented to the Emergency Department on the above date and was hospitalized for further evaluation of their emergent condition. - New Patient This patient is new to me today: Yes Date on this admission: 02/21/18 - Critical Care Critical Care patient: No
[2018-02-13] MEDS: SENNOSIDES 8.6MG TABLET (FP) PO SCH (23:05)
[2018-02-13] MEDS: MONTELUKAST NA 10 MG TABLET PO SCH (23:05)
[2018-02-13] MEDS: RANITIDINE HCL 150 MG TABLET (FP) PO SCH (23:05)
[2018-02-13] MEDS: QUEtiapine FUMARATE 50 MG TABLET PO SCH (23:06)
[2018-02-13] MEDS: LIDOCAINE PATCH REMOVAL MC SCH ×2 (23:07)
[2018-02-13] MEDS: ACETAMINOPHEN 650 MG/20.3 ML ORAL SOLUTION (CUPS) PO PRN (23:23)
[2018-02-13] MEDS: CYCLOBENZAPRINE HCL 10 MG TABLET (FP) PO PRN (23:32)
[2018-02-14] MEDS: ACETAMINOPHEN 650 MG/20.3 ML ORAL SOLUTION (CUPS) PO PRN ×2 (05:52→21:20)
[2018-02-14] MEDS: DOCUSATE SODIUM 100 MG CAPSULE (FP) PO SCH ×3 (05:53→21:21)
[2018-02-14] MEDS: BACLOFEN 10 MG TABLET (FP) PO SCH ×3 (05:53→21:20)
[2018-02-14] MEDS: HEPARIN NA (PORCINE) 5,000 UNITS/ML 1ML VIAL SQ SCH (05:53)
[2018-02-14] MEDS: ESCITALOPRAM OXALATE 10 MG TABLET (FP) PO SCH (10:03)
[2018-02-14] MEDS: LORATADINE 10 MG TABLET PO SCH (10:04)
[2018-02-14] MEDS: LIDOCAINE 5% TOPICAL PATCH TP SCH ×3 (10:04→10:15)
[2018-02-14] MEDS: POLYETHYLENE GLYCOL 3350 119 GM BTL PO SCH ×2 (10:06→21:24)
[2018-02-14] MEDS: CYCLOBENZAPRINE HCL 10 MG TABLET (FP) PO PRN ×2 (10:14→21:20)
--- NOTE | 2018-02-14 16:41 | PN ---
Progress Note (short form) - Note Progress Note: Patient sleeping when encountered. Awaiting REGAN Will follow.
[2018-02-14] MEDS ORDERED: methylPREDNISolone ACET (DEPO) 80 MG/1 ML VIAL ONE (17:15)
[2018-02-14] MEDS ORDERED: BUPIVACAINE HCL/PF 0.25% (2.5MG/ML) 10 ML VIAL ONE (17:16)
[2018-02-14] MEDS ORDERED: ONDANSETRON 4 MG/2 ML VIAL IVPUSH PRN (18:08)
[2018-02-14] MEDS ORDERED: ACETAMINOPHEN 1000 MG/100 ML VIAL (NON FORMULARY) IVPB ONE (18:09)
[2018-02-14] MEDS ORDERED: LACTATED RINGERS SOLUTION 1,000 ML IV SCH (18:15)
[2018-02-14] MEDS ORDERED: MIDAZOLAM HCL 2 MG/2 ML SINGLE DOSE VIAL ONE (18:27)
[2018-02-14] MEDS ORDERED: BUPIVACAINE HCL/PF 0.25% (2.5MG/ML) 10 ML VIAL IJ ONE ×2 (18:29)
[2018-02-14] MEDS ORDERED: methylPREDNISolone ACET (DEPO) 80 MG/1 ML VIAL IM ONE ×2 (18:29)
--- NOTE | 2018-02-14 19:26 | PN ---
Physical Exam: SUBJECTIVE: Patient seen and examined sitting on edge of bed doing puzzle. OBJECTIVE: Vital Signs Period Temp Pulse Resp BP Sys/Bustillos Pulse Ox Last 24 Hr 98 F-99.3 F 82-102 16-20 105-143/60-80 96-100 GENERAL: The patient is awake, alert, and fully oriented, in no acute distress. HEAD: Normal with no signs of trauma. EYES: PERRL, extraocular movements intact, sclera anicteric, conjunctiva clear. No ptosis. ENT: Ears normal, nares patent, oropharynx clear without exudates, moist mucous membranes. NECK: Trachea midline, full range of motion, supple. LUNGS: Breath sounds equal, clear to auscultation bilaterally, no wheezes, no crackles, no accessory muscle use. HEART: Regular rate and rhythm, S1, S2 without murmur, rub or gallop. ABDOMEN: Soft, nontender, nondistended, normoactive bowel sounds, no guarding, no rebound, no hepatosplenomegaly, no masses. EXTREMITIES: 2+ pulses, warm, well-perfused, no edema. NEUROLOGICAL: Cranial nerves II through XII grossly intact. Normal speech, gait not observed. PSYCH: Normal mood, normal affect. SKIN: Warm, dry, normal turgor, no rashes or lesions noted Active Medications Generic Name Dose Route Start Last Admin Trade Name Freq PRN Reason Stop Dose Admin Acetaminophen 650 mg 02/08/18 13:56 02/14/18 05:52 Tylenol Oral Solution - PO 650 mg BID PRN Administration PAIN LEVEL 4 - 6 Baclofen 10 mg 02/08/18 06:00 02/14/18 15:40 Lioresal - PO Not Given TID [facility] Cyclobenzaprine HCl 5 mg 02/08/18 14:05 02/14/18 10:14 Flexeril - PO 5 mg BID PRN Administration BACK PAIN Docusate Sodium 100 mg 02/08/18 14:45 02/14/18 15:39 Colace - PO Not Given TID SUSY Escitalopram Oxalate 10 mg 02/09/18 10:00 02/14/18 10:03 Lexapro - PO 10 mg DAILY SUSY Administration Fentanyl 50 mcg 02/14/18 18:08 Sublimaze Injection - IVPUSH [id number] PRN PAIN-PACU ORDER X 4 DOSES ONLY Lactated Ringer's 1,000 mls @ 75 mls/hr 02/14/18 18:15 Lactated Ringers Solution IV ASDIR SUSY Lidocaine 1 patch 02/10/18 15:30 02/14/18 10:15 Lidoderm Patch - TP 1 patch DAILY SUSY Administration Loratadine 10 mg 02/09/18 10:00 02/14/18 10:04 Claritin - PO 10 mg DAILY SUSY Administration Miscellaneous 1 each 02/07/18 22:00 02/13/18 23:07 Lidoderm Patch Removal MC 1 each DAILY@2200 SUSY Administration Miscellaneous 1 each 02/10/18 22:00 02/13/18 23:07 Lidoderm Patch Removal MC 1 each DAILY@2200 SUSY Administration Montelukast Sodium 10 mg 02/08/18 22:00 02/13/18 23:05 Singulair - PO 10 mg HS SUSY Administration Morphine Sulfate 2 mg 02/09/18 15:08 02/11/18 13:14 Morphine Sulfate IVPUSH 2 mg Q6H PRN Administration PAIN LEVEL 7 - 10 Ondansetron HCl 4 mg 02/14/18 18:08 Zofran Injection IVPUSH Q6H PRN NAUSEA AND/OR VOMITING Polyethylene Glycol 17 gm 02/08/18 22:00 02/14/18 10:06 Miralax (For Daily Use) - PO Not Given BID SUSY Quetiapine Fumarate 50 mg 02/08/18 22:00 02/13/18 23:06 Seroquel - PO 50 mg HS SUSY Administration Ranitidine HCl 150 mg 02/08/18 22:00 02/13/18 23:05 Zantac - PO 150 mg HS SUSY Administration Senna 2 tab 02/08/18 22:00 02/13/18 23:05 Senna - PO 2 tab HS SUSY Administration Imaging: MRI LS: straightening of the LS without compression fracture, subluxation or bone marrow edema. mild bilateral facet hypertrophy from l3-l4 down to l5-s1 level. mild mainly central and left paracentral discl bulge at l3-l4 w.o gross nerve root impingement. mild broad based disc bulge at l4-l5 level slightly deforming surface of the thecal sac and slightly narrowing the foramina without gross nerve root impingement. small uterine fibroid. ASSESSMENT/PLAN: 32 year-old female with a PMH significant for lumbar laminectomy L5-S1 age 19 in [place]. Admitted for severe right-sided radicular pain. Degenerative lumbar disc disease --seen and evaluated by neurosurgery Dr. Ordoñez, no surgical intervention planned at this time, conservative management --continue baclofen, flexeril, morphine --scheduled for OR this afternoon for REGAN Asthma --stable DVT prophylaxis: subq heparin Physical therapy Dispo: continues to require inapatient care. Full code. Visit type - Emergency Visit Emergency Visit: Yes ED Registration Date: 02/09/18 Care time: The patient presented to the Emergency Department on the above date and was hospitalized for further evaluation of their emergent condition. - New Patient This patient is new to me today: No - Critical Care Critical Care patient: No
[2018-02-14] MEDS ORDERED: QUEtiapine FUMARATE 25 MG TABLET (FP) ONE (21:13)
[2018-02-14] MEDS: SENNOSIDES 8.6MG TABLET (FP) PO SCH (21:20)
[2018-02-14] MEDS: MONTELUKAST NA 10 MG TABLET PO SCH (21:20)
[2018-02-14] MEDS: QUEtiapine FUMARATE 50 MG TABLET PO SCH (21:22)
[2018-02-14] MEDS: RANITIDINE HCL 150 MG TABLET (FP) PO SCH (21:24)
[2018-02-14] MEDS: LIDOCAINE PATCH REMOVAL MC SCH ×2 (23:17)
[2018-02-15] MEDS: BACLOFEN 10 MG TABLET (FP) PO SCH (06:27)
[2018-02-15] MEDS: DOCUSATE SODIUM 100 MG CAPSULE (FP) PO SCH (06:27)
[2018-02-15] MEDS: CYCLOBENZAPRINE HCL 10 MG TABLET (FP) PO PRN (10:07)
[2018-02-15] MEDS: ACETAMINOPHEN 650 MG/20.3 ML ORAL SOLUTION (CUPS) PO PRN (10:07)
[2018-02-15] MEDS: LIDOCAINE 5% TOPICAL PATCH TP SCH (10:09)
[2018-02-15] MEDS: POLYETHYLENE GLYCOL 3350 119 GM BTL PO SCH (10:09)
[2018-02-15] MEDS: LORATADINE 10 MG TABLET PO SCH (10:09)
[2018-02-15] MEDS: ESCITALOPRAM OXALATE 10 MG TABLET (FP) PO SCH (10:09)
--- NOTE | 2018-02-15 12:00 | PN ---
Progress Note (short form) - Note Progress Note: Patient describes improvement in her pain and ability to ambulate after REGAN.
--- NOTE | 2018-02-15 12:59 | DS ---
Physical Exam: SUBJECTIVE: Patient seen and examined. Pain decreased since epidural steroid injection. OBJECTIVE: Vital Signs Period Temp Pulse Resp BP Sys/Bustillos Pulse Ox Last 24 Hr 97.0 F-99.3 F 68-102 16-20 105-143/51-80 98-100 PHYSICAL EXAM GENERAL: The patient is awake, alert, and fully oriented, in no acute distress. HEAD: Normal with no signs of trauma. EYES: PERRL, extraocular movements intact, sclera anicteric, conjunctiva clear. ENT: Ears normal, nares patent, oropharynx clear without exudates, moist mucous membranes. NECK: Trachea midline, full range of motion, supple. LUNGS: Breath sounds equal, clear to auscultation bilaterally, no wheezes, no crackles, no accessory muscle use. HEART: Regular rate and rhythm, S1, S2 without murmur, rub or gallop. ABDOMEN: Soft, nontender, nondistended, normoactive bowel sounds, no guarding, no rebound, no hepatosplenomegaly, no masses. EXTREMITIES: 2+ pulses, warm, well-perfused, no edema. NEUROLOGICAL: Cranial nerves II through XII grossly intact. Normal speech, gait not observed. LABS CBCD WBC 8.2 K/mm3 (4.0-10.0) 02/11/18 08:54 RBC 3.95 M/mm3 (3.60-5.2) 02/11/18 08:54 Hgb 11.2 GM/dL (10.7-15.3) 02/11/18 08:54 Hct 34.4 % (32.4-45.2) 02/11/18 08:54 MCV 87.3 fl (80-96) 02/11/18 08:54 MCHC 32.5 g/dl (32.0-36.0) 02/11/18 08:54 RDW 13.6 % (11.6-15.6) 02/11/18 08:54 Plt Count 330 K/MM3 (134-434) 02/11/18 08:54 MPV 8.1 fl (7.5-11.1) 02/11/18 08:54 CMP Sodium 138 mmol/L (136-145) 02/11/18 08:54 Potassium 4.1 mmol/L (3.5-5.1) 02/11/18 08:54 Chloride 103 mmol/L (98-107) 02/11/18 08:54 Carbon Dioxide 26 mmol/L (21-32) 02/11/18 08:54 Anion Gap 9 MMOL/L (8-16) 02/11/18 08:54 BUN 10 mg/dL (7-18) 02/11/18 08:54 Creatinine 0.5 mg/dL (0.55-1.3) L 02/11/18 08:54 Creat Clearance w eGFR > 60 (>60) 02/11/18 08:54 Calcium 9.0 mg/dL (8.5-10.1) 02/11/18 08:54 Total Bilirubin 0.7 mg/dL (0.2-1) 02/11/18 08:54 AST 20 U/L (15-37) 02/11/18 08:54 ALT 31 U/L (13-61) 02/11/18 08:54 Alkaline Phosphatase 68 U/L (45-117) 02/11/18 08:54 Total Protein 7.0 g/dl (6.4-8.2) 02/11/18 08:54 Albumin 3.3 g/dl (3.4-5.0) L 02/11/18 08:54 HOSPITAL COURSE: Date of Admission:02/09/18 Date of Discharge: 02/15/18 Imaging: MRI LS: straightening of the LS without compression fracture, subluxation or bone marrow edema. mild bilateral facet hypertrophy from l3-l4 down to l5-s1 level. mild mainly central and left paracentral discl bulge at l3-l4 w.o gross nerve root impingement. mild broad based disc bulge at l4-l5 level slightly deforming surface of the thecal sac and slightly narrowing the foramina without gross nerve root impingement. small uterine fibroid. ASSESSMENT/PLAN: 32 year-old female with a PMH significant for lumbar laminectomy L5-S1 age 19 in [place]. Admitted for severe right-sided radicular pain. Degenerative lumbar disc disease --seen and evaluated by neurosurgery Dr. Ordoñez, no surgical intervention indicated, conservative management --treated with baclofen, flexeril, morphine PRN --symptomatic improvement after episudral steroid injection on 02/14 --walking 40 feet at time of discharge to rehab Asthma --stable Minutes to complete discharge: 35 Discharge Summary Reason For Visit: LOW BACK PAIN Current Active Problems Low back pain radiating to left lower extremity (Acute) Condition: Stable - Instructions Diet, Activity, Other Instructions: You have been taking tylenol and tylenol-containing medication. Do not take more than 4,000mg of tylenol in any 24-hour period. Referrals: Rubio Peck MD [Staff Physician] - Juan Carlos Walls MD [Primary Care Provider] - 2 Weeks Disposition: LONG-TERM FACILITY - Home Medications Comprehensive Discharge Medication List: Ambulatory Orders Cyclobenzaprine HCl [Flexeril -] 10 mg PO TID 02/07/18 Tramadol HCl 50 mg PO DAILY 02/07/18 Cyclobenzaprine HCl [Flexeril -] 5 mg PO BID 02/08/18 Ergocalciferol (Vitamin D2) [Vitamin D2] 50,000 unit PO WEEKLY 02/08/18 Escitalopram Oxalate [Lexapro -] 10 mg PO DAILY 02/08/18 Famotidine [Pepcid] 20 mg PO HS 02/08/18 Fluticasone Propionate [Flovent Diskus] 50 mcg IH QID 02/08/18 Loratadine [Claritin] 10 mg PO DAILY 02/08/18 Montelukast Sodium [Singulair] 10 mg PO HS 02/08/18 Omeprazole 20 mg PO DAILY 02/08/18 Quetiapine Fumarate [Seroquel -] 50 mg PO HS 02/08/18 Tramadol HCl/Acetaminophen [Tramadol-Acetaminophn 37.5-325] 1 each PO BID Lidocaine 5% Patch [Lidoderm -] 1 patch TP DAILY patch 02/13/18 Lidocaine Patch Removal [Lidoderm Patch Removal] 1 each MC DAILY@2200 each 01/23 This patient is new to me today: No Emergency Visit: Yes ED Registration Date: 02/09/18 Care time: The patient presented to the Emergency Department on the above date and was hospitalized for further evaluation of their emergent condition. Critical Care patient: No - Discharge Referral Referred to [facility] Med P.C.: No
[2018-02-15 13:48] VITALS: BP 119/67; PULSE 94; TEMP 97.9
== END 2018-02-15 14:39 | DRG 347 ==
LOC: JER 19:50 → JERBED 23:21 → UNDOADMOB 02-08 01:17 → JERBED 02-08 01:17 → J7W 02-08 05:17 → JERBED 02-08 05:17 → OBSVTOIN 02-09 15:09
PROVIDERS: ADMIT Internal Medicine; ATTEND Nurse Practitioner Acute Care
PROC: 3E0R33Z Introduction of Anti-inflammatory into Spinal Canal, Percutaneous Approach (ICD-10-PCS; principal; 2018-02-14 17:30)
DX: M51.16 Intervertebral disc disorders with radiculopathy, lumbar region (principal); E66.01 Morbid (severe) obesity due to excess calories; Z68.42 Body mass index [BMI] 45.0-49.9, adult; J45.909 Unspecified asthma, uncomplicated; M89.38 Hypertrophy of bone, other site; D25.9 Leiomyoma of uterus, unspecified; F41.9 Anxiety disorder, unspecified
CPT/HCPCS: 36415; 72148-TC; 76000-TC-FY; 80048; 80053; 83735; 84100; 84703; 85025; 85610; 85730; 90688; 94760; 97116-GP; 97161-GP; 99281-25; 99285-25; G0008; G0378; J0475; J1644

== ENCOUNTER 2018-09-24 10:00 | Emergency (ER) | payer OTHER ==
[2018-09-24 10:48] VITALS: TEMP 98.5; BMI 47.5
[2018-09-24] MEDS ORDERED: SODIUM CHLORIDE 0.9% 500 ML INFUS.BAG IV ONE (11:21)
[2018-09-24] MEDS ORDERED: ACETAMINOPHEN 1000 MG/100 ML VIAL (NON FORMULARY) IVPB ONE (11:22)
[2018-09-24] MEDS ORDERED: DEXAMETHASONE SOD PHOSPHATE 10 MG/1 ML VIAL IVPUSH ONE (11:22)
[2018-09-24] MEDS ORDERED: DEXAMETHASONE 4 MG TABLET (FP) PO ONE (11:38)
[2018-09-24] MEDS ORDERED: ACETAMINOPHEN INJECTION 100 ML IVPB ONE (11:43)
[2018-09-24] MEDS ORDERED: DEXAMETHASONE SOD PHOSPHATE 10 MG/1 ML VIAL ONE (11:43)
--- NOTE | 2018-09-24 11:50 | PDOC ---
History of Present Illness - General Chief Complaint: Sore Throat Stated Complaint: SORE THROAT/DIFF BREATHING Time Seen by Provider: 09/24/18 11:17 History Source: Patient, Family - History of Present Illness Initial Comments: 09/24/18 11:54 HPI 32 YOF with h/o asthma, chronic back pain, obesity presenting with sore throat, difficulty swallowing, neck pain since yesterday. associated with some shortness of breath, nausea and vomiting. last meal at 5pm yesterday, where she tolerated solid foods. has been drinking fluids and water. throat pain worse with swallowing. she took a pill of amoxicillin yesterday, from old prescription. she also endorses general headache, but no fever. some supraorbital eye pressure and pain, but no discharge. right ear pain worse with swallowing. Denies fever, chills, chest pain, palpitation, dizziness, weakness, D, abdominal pain, bladder and bowel problems, leg swelling, No travel history. + sick contact, 8 y/o son with cough and sore throat x 1 week. Allergies: ASA and NSAIDS - anaphylaxis and throat swelling Past Medical History: as documented in EMR/HPI Social history: Lives with family. No tobacco, ETOH or drug use. Surgical history: back surgery, carpal tunnel Meds: as documented in EMR PMD: Dr Chiu Review of systems Constitutional: no fevers or chills. no weakness. HEENT: no dizziness. No congestion. No visual/hearing disturbances. +headache, + eye pain. no eye discharge, +right ear pain. +sore throat, +odynophagia. +neck pain. CVS: no cp or syncope. Resp: +sob. No cough. Gastrointestinal: no abdominal pain or diarrhea, +nausea + vomiting. Genitourinary: no urinary sx, hematuria. MUSCULOSKELETAL: No joint pain and swelling. No back pain. +neck pain. SKIN: no redness or skin changes, no discharge, no rash. No wounds. Hematologic: no easy bruising/bleeding. NEUROLOGIC: No dizziness, LOC or altered mental status. No weakness, numbness or tingling. Psych: no anxiety or depression Allergic/Immunologic: +medication allergies All other systems reviewed and negative, or as documented in HPI. Physical exam: General: Well appearing, awake and alert, NAD. airway intact and patent. HEENT: NCAT, PERRL, EOMI, clear conjunctiva, anicteric, moist mucus membranes, +bilateral tonsillary hypertrophy and overlying exudates. Airway patent, normal phonation. tolerating secretions. Uvula midline. No sinus tenderness, TM clear, no pinna tenderness to manipulation. Neck: neck supple, FROM. +submandibular and anterior cervical neck tenderness, no LAD. Resp: CTAB, normal and even respirations, no respiratory distress CVS: RRR, no murmurs, 2+ peripheral pulses throughout, no peripheral edema Abdomen: soft, NTND, no peritoneal signs. Back: nontender, normal inspection and ROM MSK: no edema, ABDUL x4, ROM intact. normal bulk and tone. Neuro: alert, no focal neuro deficits. Skin: warm and well perfused, cap refill <2 sec, normal color, no rash 09/24/18 12:00 09/24/18 13:43 Past History - Past Medical History Allergies/Adverse Reactions: Allergies Allergy/AdvReac Type Severity Reaction Status Date / Time aspirin Allergy Difficulty Verified 09/24/18 10:43 Breathing naproxen Allergy Difficulty Verified 09/24/18 10:43 Breathing NSAIDS (Non-Steroidal Allergy Difficulty Verified 09/24/18 10:43 Anti-Inflamma Breathing Home Medications: Ambulatory Orders Cyclobenzaprine HCl [Flexeril -] 10 mg PO TID 02/07/18 Tramadol HCl 50 mg PO DAILY 02/07/18 Cyclobenzaprine HCl [Flexeril -] 5 mg PO BID 02/08/18 Ergocalciferol (Vitamin D2) [Vitamin D2] 50,000 unit PO WEEKLY 02/08/18 Escitalopram Oxalate [Lexapro -] 10 mg PO DAILY 02/08/18 Famotidine [Pepcid] 20 mg PO HS 02/08/18 Fluticasone Propionate [Flovent Diskus] 50 mcg IH QID 02/08/18 Loratadine [Claritin] 10 mg PO DAILY 02/08/18 Montelukast Sodium [Singulair] 10 mg PO HS 02/08/18 Omeprazole 20 mg PO DAILY 02/08/18 Quetiapine Fumarate [Seroquel -] 50 mg PO HS 02/08/18 Tramadol HCl/Acetaminophen [Tramadol-Acetaminophn 37.5-325] 1 each PO BID Lidocaine 5% Patch [Lidoderm -] 1 patch TP DAILY patch 02/13/18 Lidocaine Patch Removal [Lidoderm Patch Removal] 1 each MC DAILY@2200 each 01/23 Ondansetron [Zofran Odt -] 4 mg SL TID PRN #9 od.tablet 09/24/18 Asthma: Yes COPD: No CHF: No Diabetes: (prediabetic) - Surgical History Orthopedic Surgery: Yes (disc repair) - Immunization History TDAP Vaccination: Yes Immunization Up to Date: Yes - Suicide/Smoking/Psychosocial Hx Smoking History: Never smoked Have you smoked in the past 12 months: No Hx Alcohol Use: No Drug/Substance Use Hx: No Substance Use Type: None Hx Substance Use Treatment: No *Physical Exam - Vital Signs Last Vital Signs Temp Pulse Resp BP Pulse Ox 98.5 F 96 H 24 H 95/68 97 09/24/18 10:45 09/24/18 10:45 09/24/18 10:45 09/24/18 10:45 09/24/18 10:45 ED Treatment Course - LABORATORY CBC & Chemistry Diagram: 09/24/18 11:30 09/24/18 11:30 Medical Decision Making - Medical Decision Making 09/24/18 11:58 hpi as documented VS reviewed, no fever, wnl. DDX, strep throat, pharyngitis, URI, viral pharyngitis. INTERN, RPA, deep space infection. airway intact, breathing comfortably. +oropharyngeal findings basic labs, strep test, throat culture and monoscreen ED interventions: IVF, tylenol and PO dexamethasone and reassess NSAID allergy with anaphylaxis, thus not given Strep test positive, pt elects for bicillin IM inj x 1 for strep treatment.. mono test followup. labs with leukocytosis noted 16K, but has strep throat infection she is nontoxic appearing, maintaining secretions and no respiratory distress, SpO2 >95% on RA no fever or other systemic findings no imaging indicated at this time, as doubt deep space infection such as INTERN or RPA, no meningeal signs or symptoms, lungs clear and remains well appearing avoid sharing secretions or utensils, family members should get checked for strep and treatment if necessary supportive care and hydration, salt water gargles and warm lemon/hong tea for throat analgesia. VS remain wnl, no tachycardia or hypoxia. breathing comfortable on reassessment Pt to be discharged in stable condition. Patient and family made aware of impression and plan, return precautions discussed (including but not limited to worsening pain or symptoms), fevers, or signs of infection, chest pain, respiratory distress, inability to tolerate oral intake, dehydration, syncope, or neurologic changes). Follow up with PMD as recommended, follow up information provided, take medications as instructed for duration of time. continue with supportive care, avoid triggers and precipitants. All questions answered to patient's satisfaction and expressed understanding and comfort with this. Patient does not suffer from an acute life-threatening medical condition at this time and is safe for outpatient follow-up. 09/24/18 13:44 09/24/18 13:45 *DC/Admit/Observation/Transfer Diagnosis at time of Disposition: Strep pharyngitis - Discharge Dispostion Disposition: HOME Condition at time of disposition: Stable Decision to Admit order: No - Prescriptions Prescriptions: Ondansetron [Zofran Odt -] 4 mg SL TID PRN #9 od.tablet PRN Reason: Nausea - Referrals Referrals: Nima Chiu [Primary Care Provider] - - Patient Instructions Printed Discharge Instructions: DI for Strep Throat Additional Instructions: you have a strep throat infection. you were treated with a penicillin injection that is a one time dose for this infection. you can take tylenol for pain as needed you were also given dose of steroids by mouth that will be good for 2 days to reduce inflammation and the pain associated follow up with your primary doctor in 2-3 days for clinical reevaluation you should cover your cough and sneezing and avoid sharing utensils/cups and other items as this is contagious. any close family members with similar symptoms should go to primary doctor or intelligence group supervisor for checkup and possibly get treatment if also strep throat. - if worsening symptoms of fever, unable to tolerate secretions, worsening throat pain or sore throat, vomiting, cough, respiratory distress, turning blue or fainting, dehydration, inability to tolerate fluids or oral intake, return to the Emergency department for evaluation. salt water gargles and warm lemon tea is appropriate as well for soothing qualities for sore throat/cough. minimize spread of infection given contagious nature, and cover your mouth and wash your hands adequately with soap and water. Stay well hydrated and rest. Cool air - walk around outdoors in the evening. May also try hot shower steam. This can alleviate the sore throat. --------- Tiene colt infeccin de garganta por estreptococos. Usted fue tratado con colt inyeccin de penicilina que es colt dosis lucie para esta infeccin. Puede rey tylenol para el dolor segn sea necesario. Tambin se le administr colt dosis de esteroides por va oral que ser buena fe 2 stewart para reducir la inflamacin y el dolor asociado. [place]oreto un seguimiento con david mdico de cabecera en 2-3 stewart para colt reevaluacin clnica. debe cubrirse la tos y los estornudos y evitar compartir utensilios / tazas y otros artculos ya que esto es contagioso. cualquier familiar cercano con sntomas similares debe acudir al mdico de cabecera o al pediatra para un chequeo y posiblemente recibir tratamiento si tambin tiene estreptococos en la garganta. debe acudir al mdico de cabecera o al pediatra para un chequeo y posiblemente recibir tratamiento si tambin tiene estreptococos en la garganta. - si los sntomas de fiebre empeoran, no puede tolerar las secreciones, el dolor de garganta o el dolor de garganta, vmitos, tos, dificultad respiratoria , tammi o desmayo, deshidratacin, incapacidad para tolerar la ingesta de lquidos o por va oral, vuelva al Departamento de Emergencias para david evaluacin. Las grgaras de agua salada y el t de limlandy caliente tambin son apropiados para calmar las cualidades del dolor de garganta / tos. reduzca al mnimo la propagacin de la infeccin debido a la naturaleza contagiosa, y cubra david boca y lvese las byron adecuadamente con agua y jabn. Mantente otilio hidratado y descansa. Aire fresco - caminar al aire uma por la noche. [place] puede probar el vapor de la ducha caliente. [place] puede aliviar el dolor de garganta. - Post Discharge Activity Forms/Work/School Notes: Back to Work
[2018-09-24 11:53] LABS: BASO % 0.4 % (0-2.0); EOS % 1.4 % (0-4.5); HEMOGLOBIN 12.2 GM/dL (10.7-15.3); LYMPH % 8.3 % (8-40); MCH 29.2 pg (25.7-33.7); MCHC 33.1 g/dl (32.0-36.0); MEAN CELL VOLUME 88.3 fl (80-96); MEAN PLT VOLUME 7.7 fl (7.5-11.1); MONO % 4.6 % (3.8-10.2); NEUT % 85.3 % (42.8-82.8); PLATELET COUNT 401 K/MM3 (134-434); RBC 4.19 M/mm3 (3.60-5.2); RDW 13.6 % (11.6-15.6); WHITE BLOOD COUNT 16.6 K/mm3 (4.0-10.0)
[2018-09-24] MEDS ORDERED: PENICILLIN G BENZATHINE 1,200,000 UNIT/2 ML PFS IM ONE ×2 (12:13→12:19)
[2018-09-24 12:21] LABS: ALBUMIN 3.6 g/dl (3.4-5.0); CALCIUM 9.4 mg/dL (8.5-10.1); CREATININE 0.6 mg/dL (0.55-1.3); POTASSIUM 4.2 mmol/L (3.5-5.1); TOT PROT 7.4 g/dl (6.4-8.2)
[2018-09-24 13:24] VITALS: BP 116/69; PULSE 94
== END 2018-09-24 13:25 | disposition home or self-care (01) ==
LOC: JER 10:00
PROC: 3E02329 Introduction of Other Anti-infective into Muscle, Percutaneous Approach (ICD-10-PCS; principal; 2018-09-24)
PROC: 3E033NZ Introduction of Analgesics, Hypnotics, Sedatives into Peripheral Vein, Percutaneous Approach (ICD-10-PCS; 2018-09-24)
PROC: 3E0333Z Introduction of Anti-inflammatory into Peripheral Vein, Percutaneous Approach (ICD-10-PCS; 2018-09-24)
DX: J02.0 Streptococcal pharyngitis (principal); B95.0 Streptococcus, group A, as the cause of diseases classified elsewhere
CPT/HCPCS: 36415; 80053; 84703; 85025; 86308; 87070; 87880; 96372; 96374; 96375; 99281-25; J0131

== ENCOUNTER 2019-03-24 20:30 | Emergency (ER) | payer OTHER ==
[2019-03-24 20:35] VITALS: BP 154/70; PULSE 67; TEMP 98.1; BMI 44.2
[2019-03-24] MEDS ORDERED: ACETAMINOPHEN 325 MG TABLET (FP) PO ONE (20:42)
--- NOTE | 2019-03-24 20:42 | PDOC ---
History of Present Illness - General Chief Complaint: Back Pain Stated Complaint: BACK PAIN Time Seen by Provider: 03/24/19 20:37 History Source: Patient - History of Present Illness Timing/Duration: other (1 week) Severity: severe Past History - Past Medical History Allergies/Adverse Reactions: Allergies Allergy/AdvReac Type Severity Reaction Status Date / Time aspirin Allergy Difficulty Verified 03/24/19 20:35 Breathing naproxen Allergy Difficulty Verified 03/24/19 20:35 Breathing NSAIDS (Non-Steroidal Allergy Difficulty Verified 03/24/19 20:35 Anti-Inflamma Breathing Home Medications: Ambulatory Orders Cyclobenzaprine HCl [Flexeril -] 10 mg PO TID 02/07/18 Tramadol HCl 50 mg PO DAILY 02/07/18 Cyclobenzaprine HCl [Flexeril -] 5 mg PO BID 02/08/18 Ergocalciferol (Vitamin D2) [Vitamin D2] 50,000 unit PO WEEKLY 02/08/18 Escitalopram Oxalate [Lexapro -] 10 mg PO DAILY 02/08/18 Famotidine [Pepcid] 20 mg PO HS 02/08/18 Fluticasone Propionate [Flovent Diskus] 50 mcg IH QID 02/08/18 Loratadine [Claritin] 10 mg PO DAILY 02/08/18 Montelukast Sodium [Singulair] 10 mg PO HS 02/08/18 Omeprazole 20 mg PO DAILY 02/08/18 Quetiapine Fumarate [Seroquel -] 50 mg PO HS 02/08/18 Tramadol HCl/Acetaminophen [Tramadol-Acetaminophn 37.5-325] 1 each PO BID Lidocaine 5% Patch [Lidoderm -] 1 patch TP DAILY patch 02/13/18 Lidocaine Patch Removal [Lidoderm Patch Removal] 1 each MC DAILY@2200 each 01/23 Ondansetron [Zofran Odt -] 4 mg SL TID PRN #9 od.tablet 09/24/18 Oxycodone HCl/Acetaminophen [Percocet 5-325 mg Tablet] 1 tab PO Q6H #20 tablet MDD 4 doses 03/24/19 predniSONE [Deltasone -] 20 mg PO DAILY #11 tablet 03/24/19 Asthma: Yes COPD: No CHF: No Diabetes: (prediabetic) - Surgical History Orthopedic Surgery: Yes (disc repair) - Immunization History TDAP Vaccination: Yes Immunization Up to Date: Yes - Psycho Social/Smoking Cessation Hx Smoking History: Never smoked Have you smoked in the past 12 months: No Information on smoking cessation initiated: No Hx Alcohol Use: No Drug/Substance Use Hx: No Substance Use Type: None Hx Substance Use Treatment: No Review of Systems - Review of Systems ABD/GI: No: Nausea, Vomiting : No: Dysuria, Flank Pain, Hematuria Musculoskeletal: Yes: Back Pain. No: Muscle Weakness Neurological: No: Numbness, Tingling, Weakness *Physical Exam - Vital Signs Last Vital Signs Temp Pulse Resp BP Pulse Ox 98.1 F 67 18 154/70 98 03/24/19 20:32 03/24/19 20:32 03/24/19 20:32 03/24/19 20:32 03/24/19 20:32 - Physical Exam General Appearance: Yes: Appropriately Dressed, Mild Distress HEENT: positive: Normal Voice Neck: positive: Supple Respiratory/Chest: negative: Respiratory Distress Gastrointestinal/Abdominal: positive: Soft. negative: Tender Musculoskeletal: negative: CVA Tenderness, Vertebral Tenderness Extremity: positive: Normal Inspection Integumentary: positive: Dry, Warm Neurologic: positive: Fully Oriented, Alert, Normal Mood/Affect, Motor Strength 5/5 Medical Decision Making - Medical Decision Making 03/24/19 21:12 33-year-old morbidly obesed female, s/p lumbar laminectomy of L5-S1 at age 19 in [place], [facility] spine with no gross nerve root impingement on MRI at the time, seen by neurosurgery who deemed no surgery necessary and treated pt with pain control. Here with her usual b/l lower back pain that has been persistent x 1 week, and not better with her meloxicam and muscle relaxant. No leg pain, acute sensory changes, lower extremity weakness, bowel or bladder incontinence or saddle anesthesia. S/p PT earlier this year. Follows up with orthospine at [facility] See exam Acute on chronic LBP Known multilevel disc bulge on MRI 02/22 at [facility] S/p recent PT On meds at home w/ no relief No e/o cauda equina at this time Improved w/ dose of IM morphine here (allergic to NSAIDs) -Dc w/ short pred taper, percocet -ortho spine f/u this week Discharge - Discharge Information Problems reviewed: Yes Clinical Impression/Diagnosis: Low back pain Qualifiers: Chronicity: chronic Back pain laterality: bilateral Sciatica presence: without sciatica Qualified Code(s): M54.5 - Low back pain Condition: Improved Disposition: HOME - Additional Discharge Information Prescriptions: Oxycodone HCl/Acetaminophen [Percocet 5-325 mg Tablet] 1 tab PO Q6H #20 tablet MDD 4 doses predniSONE [Deltasone -] 20 mg PO DAILY #11 tablet - Follow up/Referral - Patient Discharge Instructions Patient Printed Discharge Instructions: Low Back Pain Additional Instructions: Take medications as directed and continue to follow-up with your back pain specialist - Post Discharge Activity Work/Back to School Note: Back to Work
[2019-03-24] MEDS ORDERED: morphine CARPU-JECT 4 MG/1 ML DISP.SYRIN IVPUSH ONE (20:43)
[2019-03-24] MEDS ORDERED: ACETAMINOPHEN 500 MG TABLET (FP) ONE (20:44)
[2019-03-24] MEDS ORDERED: morphine SULFATE 4 MG/ML VIAL ONE (20:47)
--- NOTE | 2019-03-24 21:09 | PDOC ---
*Physical Exam - Vital Signs Last Vital Signs Temp Pulse Resp BP Pulse Ox 98.1 F 67 18 154/70 98 03/24/19 20:32 03/24/19 20:32 03/24/19 20:32 03/24/19 20:32 03/24/19 20:32 Medical Decision Making - Medical Decision Making 03/24/19 20:44 33-year-old morbidly obese female, history of lumbar laminectomy of L5-S1 at age 19 in [place], s/p admission for intractable back pain in 2018 with multiple disc bulge at LS spine with no gross gross nerve root impingement on MRI at the time. Was seen by Dr. Donnelly of neurosurgery who did not deem surgery necessary at the time. Pt currently follows up with pain management at [facility] and only currently taking muscle relaxant and meloxicam at home but here with persistent bilateral lower back pain x1 week that is not improving with meds. No leg pain at this time and no acute sensory changes lower extremity weakness saddle anesthesia or bowel or bladder incontinence. Patient s/p earlier this year see exam Acute on chronic LBP
== END 2019-03-24 22:53 | disposition home or self-care (01) ==
LOC: JERFT 20:30
PROC: 3E033NZ Introduction of Analgesics, Hypnotics, Sedatives into Peripheral Vein, Percutaneous Approach (ICD-10-PCS; principal; 2019-03-24)
DX: M54.5 Low back pain (principal); Z87.09 Personal history of other diseases of the respiratory system; R73.03 Prediabetes; E66.01 Morbid (severe) obesity due to excess calories; Z68.41 Body mass index [BMI] 40.0-44.9, adult; Z98.890 Other specified postprocedural states; Z88.6 Allergy status to analgesic agent
CPT/HCPCS: 96374; 99282-25

== ENCOUNTER 2019-04-13 06:53 | Emergency (ER) | payer OTHER ==
[2019-04-13 07:17] VITALS: TEMP 98.3; BMI 44.0
[2019-04-13] MEDS ORDERED: ACETAMINOPHEN 325 MG TABLET (FP) PO ONE (07:57)
[2019-04-13] MEDS ORDERED: ACETAMINOPHEN 325 MG TABLET (FP) ONE (08:03)
--- NOTE | 2019-04-13 08:28 | PDOC ---
History of Present Illness - General Chief Complaint: Pain, Acute Stated Complaint: ABD PAIN Time Seen by Provider: 04/13/19 07:39 History Source: Patient Exam Limitations: No Limitations - History of Present Illness Travel History: No Initial Comments: 04/13/19 08:03 33-year-old female presents to ED with complaints of suprapubic pressure for the past week worsening in severity now causing nausea. Patient also states to the past 3 days has had some suprapubic pressure worsened with urination but denies any foul-smelling urine, back pain, hematuria, fever or chills. Patient states has regularly irregular menstrual cycles and denies any vaginal discharge , diarrhea, or constipation. patient also denies dyspareunia Timing/Duration: reports: getting worse Quality: reports: moderate, cramping Abdominal Pain Onset Location: reports: suprapubic Pain Radiation: reports: no radiation Activities at Onset: reports: none Treatment Prior to Arrive: improves with: analgesics Aggravating Factors: improves with: Voiding Alleviating Factors: improves with: None Past History - Travel Traveled outside of the country in the last 30 days: No Close contact w/someone who was outside of country & ill: No - Past Medical History Allergies/Adverse Reactions: Allergies Allergy/AdvReac Type Severity Reaction Status Date / Time aspirin Allergy Difficulty Verified 04/13/19 07:13 Breathing naproxen Allergy Difficulty Verified 04/13/19 07:13 Breathing NSAIDS (Non-Steroidal Allergy Difficulty Verified 04/13/19 07:13 Anti-Inflamma Breathing Home Medications: Ambulatory Orders Nitrofurantoin Monohyd/M-Cryst [Macrobid -] 100 mg PO BID #14 capsule 04/13/19 Phenazopyridine HCl [Pyridium] 200 mg PO TID #6 tablet 04/13/19 Asthma: Yes COPD: No CHF: No Diabetes: (prediabetic) - Surgical History Orthopedic Surgery: Yes (disc repair) - Immunization History TDAP Vaccination: Yes Immunization Up to Date: Yes - Psycho Social/Smoking Cessation Hx Smoking History: Never smoked Have you smoked in the past 12 months: No Hx Alcohol Use: No Drug/Substance Use Hx: No Substance Use Type: None Hx Substance Use Treatment: No Patient Lives Alone: No Lives with/in: spouse/SO Review of Systems - Review of Systems Able to Perform ROS?: Yes Constitutional: No: Symptoms Reported HEENTM: No: Symptoms Reported Respiratory: No: Symptoms reported Cardiac (ROS): No: Symptoms Reported ABD/GI: Yes: Nausea, Abdominal cramping : Yes: Dysuria Musculoskeletal: No: Symptoms Reported Integumentary: No: Symptoms Reported Neurological: No: Symptoms reported *Physical Exam - Vital Signs Last Vital Signs Temp Pulse Resp BP Pulse Ox 98.3 F 84 20 110/59 L 97 04/13/19 07:16 04/13/19 07:16 04/13/19 07:16 04/13/19 07:16 04/13/19 07:16 - Physical Exam General Appearance: Yes: Nourished, Appropriately Dressed. No: Apparent Distress HEENT: negative: Pale Conjunctivae Neck: positive: Normal Thyroid Respiratory/Chest: positive: Lungs Clear, Normal Breath Sounds. negative: Respiratory Distress, Accessory Muscle Use Cardiovascular: positive: Regular Rhythm, Regular Rate. negative: Murmur Female Pelvic Exam: negative: CMT, discharge, adnexal tenderness, vaginal bleeding Gastrointestinal/Abdominal: positive: Soft, Tenderness (Suprapubic) Musculoskeletal: negative: CVA Tenderness Extremity: positive: Normal Inspection Integumentary: positive: Normal Color, Warm, Moist Neurologic: positive: Motor Strength 5/5 (Ambulatory) ED Treatment Course - RADIOLOGY Radiology Studies Ordered: Category Date Time Status PELVIC / BLADDER US [US] Stat Ultrasound 04/13/19 07:57 Ordered TRANSVAGINAL ULTRASOUND US [US] Stat Ultrasound 04/13/19 07:57 Ordered - Medications Given in the ED: ED Medications Discontinued Medications Generic Name Dose Route Start Last Admin Trade Name J Luisq PRN Reason Stop Dose Admin Acetaminophen 650 mg 04/13/19 07:57 04/13/19 08:10 Tylenol - PO 04/13/19 07:58 650 mg ONCE ONE Administration Oxycodone/Acetaminophen 1 combo 04/13/19 07:57 04/13/19 08:10 Percocet 5/325 - PO 04/13/19 07:58 1 combo ONCE ONE Administration Medical Decision Making - Medical Decision Making 04/13/19 08:09 Chief complaint: Suprapubic cramping worsening in severity over the past few days now associated nausea. Patient also states dysuria. Patient states is taking Flexeril that she takes for chronic low back pain with no improvement for abdominal pain Exam: Patient no CVA tenderness vital signs stable. Patient mid suprapubic tenderness on exam. Plan: Urinalysis urine urine culture along with Percocet and pelvic/ transvaginal ultrasound 04/13/19 10:12 Laboratory Tests 04/13/19 04/13/19 08:20 08:20 Ur Leukocyte Esterase 2+ H Urine WBC (Auto) 56 Urine Bacteria (Auto) 1542.0 Urine HCG, Qual Negative Ultrasound shows subcentimeter follicular cyst bilaterally. Also noted small amount of free fluid within the cul-de-sac. Otherwise unremarkable exam. Several cervical nabothian cysts. Patient states feeling better. Patient has no previous urine culture on file. Patient will be given Pyridium along with Macrobid. Urine culture was sent. Patient has a follow-up appointment with her telephone order dispatcher on April 19 Discharge - Discharge Information Problems reviewed: Yes Clinical Impression/Diagnosis: UTI (urinary tract infection) Condition: Improved Disposition: HOME - Additional Discharge Information Prescriptions: Nitrofurantoin Monohyd/M-Cryst [Macrobid -] 100 mg PO BID #14 capsule Phenazopyridine HCl [Pyridium] 200 mg PO TID #6 tablet - Follow up/Referral Referrals: Nima Chiu [Primary Care Provider] - - Patient Discharge Instructions Patient Printed Discharge Instructions: DI for Urinary Tract Infection (UTI) Additional Instructions: Drink plenty of fluids. Clean from front to back. Take antibiotics as prescribed. Take Motrin or Tylenol for discomfort as needed. Also take Pyridium as scheduled for the next 2 days. If symptoms do not improve and worsen please return to the ED otherwise follow- up with your telephone order dispatcher as scheduled next week - Post Discharge Activity
[2019-04-13 08:45] LABS: EPI CELLS 0.9 /HPF (0-5/HPF); HYALINE CASTS 27 /lpf (0-8); URINE APPEARANCE CLEAR; URINE BILIRUBIN NEGATIVE (NEGATIVE); URINE COLOR YELLOW; URINE GLUCOSE (UA) NEGATIVE (NEGATIVE); URINE KETONE NEGATIVE (NEGATIVE); URINE LEUK ESTERASE 2+ (NEGATIVE); URINE NITRITE NEGATIVE (NEGATIVE); URINE PROTEIN NEGATIVE (NEGATIVE); URINE RBC 2 /hpf (0-4); URINE UROBILINOGEN 0.2 mg/dL (0.2-1.0); URINE WBC 56 /hpf (0-5)
[2019-04-13 11:11] VITALS: BP 108/69; PULSE 81
== END 2019-04-13 11:11 | disposition home or self-care (01) ==
LOC: JER 06:53
DX: N39.0 Urinary tract infection, site not specified (principal); Z88.8 Allergy status to other drugs, medicaments and biological substances
CPT/HCPCS: 76830-TC; 76856-TC; 81003; 84703; 87086; 87186; 99283-25

== ENCOUNTER 2022-05-19 12:36 | Observation (INO) | payer OTHER ==
[2022-05-19 12:59] VITALS: TEMP 98.4; BMI 44.2
[2022-05-19] MEDS ORDERED: ACETAMINOPHEN 1000 MG/100 ML BAG IVPB ONE (13:35)
[2022-05-19] MEDS ORDERED: SODIUM CHLORIDE 1,000 ML IV STA ×2 (13:35→18:17)
[2022-05-19] MEDS ORDERED: ACETAMINOPHEN INJECTION 100 ML IVPB ONE (14:05)
[2022-05-19 15:24] LABS: CHLORIDE 103 mmol/L (98-107); SODIUM 138 mmol/L (136-145)
[2022-05-19 15:25] LABS: ACTIVATED PTT 29.2 SECONDS (25.2-36.5)
[2022-05-19 15:26] LABS: CALCIUM 9.1 mg/dL (8.5-10.1)
[2022-05-19 15:27] LABS: ALBUMIN 3.4 g/dl (3.4-5.0); ANION GAP 9 MMOL/L (8-16); BASO % 0.7 % (0-2.0); BLOOD UREA NITROGEN 10.5 mg/dL (7-18); CO2 26 mmol/L (21-32); EOS % 1.7 % (0-4.5); GLUCOSE,RANDOM 113 mg/dL (74-106); HEMATOCRIT 36.9 % (32.4-45.2); HEMOGLOBIN 12.3 GM/dL (10.7-15.3); LYMPH % 17.7 % (8-40); MCH 30.5 pg (25.7-33.7); MCHC 33.2 g/dl (32.0-36.0); MEAN CELL VOLUME 91.6 fl (80-96); MEAN PLT VOLUME 7.5 fl (7.5-11.1); MONO % 5.6 % (3.8-10.2); NEUT % 74.3 % (42.8-82.8); PLATELET COUNT 454 10^3/uL (134-434); RBC 4.03 M/mm3 (3.60-5.2); RDW 13.7 % (11.6-15.6); WHITE BLOOD COUNT 9.7 K/mm3 (4.0-10.0)
[2022-05-19 15:30] LABS: CREATININE 0.6 mg/dL (0.55-1.3); SGOT/AST 14 U/L (15-37); SGPT/ALT 22 U/L (13-61)
[2022-05-19 15:32] LABS: BILIRUBIN,TOTAL 0.5 mg/dL (0.2-1); TOT PROT 7.4 g/dl (6.4-8.2)
[2022-05-19 15:33] LABS: ALK PHOS 69 U/L (45-117)
[2022-05-19 15:48] LABS: INR 1.09 (0.83-1.09); PROTHROMBIN TIME (PATIENT) 12.5 SEC (9.7-13.0)
[2022-05-19] MEDS ORDERED: morphine CARPU-JECT 2 MG/1 ML DISP.SYRIN IVPUSH ONE (18:16)
[2022-05-19] MEDS ORDERED: CYCLOBENZAPRINE HCL 10 MG TABLET (FP) PO ONE (20:04)
[2022-05-19] MEDS ORDERED: ACETAMINOPHEN 1000 MG/100 ML BAG IVPB PRN (20:05)
[2022-05-19 21:07] LABS: MAGNESIUM 2.1 mg/dL (1.8-2.4)
[2022-05-19 21:11] LABS: PHOSPHOROUS 3.5 mg/dL (2.5-4.9)
[2022-05-19] MEDS ORDERED: CYCLOBENZAPRINE HCL 5 MG TABLET ONE (21:49)
[2022-05-19] MEDS ORDERED: DOCUSATE SODIUM 100 MG CAPSULE (FP) PO SCH (22:00)
[2022-05-19] MEDS ORDERED: INSULIN SLIDING SCALE (NOVOLOG) 1 VIAL SQ SCH (22:00)
[2022-05-19 22:42] VITALS: BP 134/64; PULSE 70; RESP 20
[2022-05-20] MEDS ORDERED: HEPARIN NA (PORCINE) 5,000 UNITS/ML 1ML VIAL SQ SCH (14:00)
== END 2022-05-19 23:00 | disposition home or self-care (01) ==
LOC: JERFT 12:36 → JER 12:36 → INTOOBSV 18:19 → JERBED 18:19
PROVIDERS: ADMIT Internal Medicine; ATTEND Internal Medicine
PROC: 3E033NZ Introduction of Analgesics, Hypnotics, Sedatives into Peripheral Vein, Percutaneous Approach (ICD-10-PCS; principal; 2022-05-19)
PROC: 3E033NZ Introduction of Analgesics, Hypnotics, Sedatives into Peripheral Vein, Percutaneous Approach (ICD-10-PCS; 2022-05-19)
PROC: 3E0337Z Introduction of Electrolytic and Water Balance Substance into Peripheral Vein, Percutaneous Approach (ICD-10-PCS; 2022-05-19)
DX: M54.50 Low back pain, unspecified (principal); R26.2 Difficulty in walking, not elsewhere classified; Z88.8 Allergy status to other drugs, medicaments and biological substances; E66.01 Morbid (severe) obesity due to excess calories; Z68.41 Body mass index [BMI] 40.0-44.9, adult; J45.909 Unspecified asthma, uncomplicated; R73.03 Prediabetes
CPT/HCPCS: 36415; 71046-TC-FY; 72132-TC; 80053; 82550; 82553; 83735; 84100; 84703; 85025; 85610; 85730; 93005; 93010; 96361; 96374; 96375; 99285-25; G0378; Q9967

== ENCOUNTER 2022-12-23 17:42 | Emergency (ER) | payer OTHER ==
[2022-12-23 17:50] VITALS: BP 119/76; PULSE 83; RESP 18; TEMP 98.4; BMI 36.6
[2022-12-23] MEDS ORDERED: DEXAMETHASONE 4 MG TABLET (FP) PO ONE (18:18)
[2022-12-23] MEDS ORDERED: AMOX TR/POT CLAV 875MG/125MG TABLETS (FP) PO ONE (18:30)
[2022-12-23] MEDS ORDERED: AMOX TR/POT CLAV 875MG/125MG TABLETS (FP) ONE (18:32)
[2022-12-23] MEDS ORDERED: DEXAMETHASONE SOD PHOSPHATE 10 MG/1 ML VIAL ONE (18:32)
[2022-12-23] MEDS ORDERED: ALBUTEROL SO4 2.5/IPRATROPIUM 0.5 INH SOL 3 ML VIAL.NEB. NEB ONE (18:32)
[2022-12-23] MEDS: ALBUTEROL SO4 2.5/IPRATROPIUM 0.5 INH SOL 3 ML VIAL.NEB. NEB SCH ×3 (18:56→19:12)
[2022-12-23] MEDS ORDERED: ACETAMINOPHEN 500 MG TABLET (FP) PO ONE (19:27)
[2022-12-23] MEDS ORDERED: ACETAMINOPHEN 325 MG TABLET (FP) ONE (19:42)
[2022-12-24] MEDS ORDERED: predniSONE 20 MG TABLET (UD) PO ONE (10:00)
== END 2022-12-23 19:46 | disposition home or self-care (01) ==
LOC: JERFT 17:42
PROC: 3E0F7GC Introduction of Other Therapeutic Substance into Respiratory Tract, Via Natural or Artificial Opening (ICD-10-PCS; principal; 2022-12-23)
DX: J45.901 Unspecified asthma with (acute) exacerbation (principal); H65.93 Unspecified nonsuppurative otitis media, bilateral; R51.9 Headache, unspecified; R50.9 Fever, unspecified; R05.9 Cough, unspecified; Z20.822 Contact with and (suspected) exposure to COVID-19
CPT/HCPCS: 0241U-QW; 71046-TC-FY; 99284-25

== ENCOUNTER 2023-05-30 16:16 | Emergency (ER) | payer OTHER ==
[2023-05-30 16:43] VITALS: BMI 44.9
[2023-05-30] MEDS ORDERED: ALBUTEROL SO4 2.5/IPRATROPIUM 0.5 INH SOL 3 ML VIAL.NEB. NEB ONE ×2 (18:33→18:46)
[2023-05-30] MEDS ORDERED: DEXAMETHASONE SOD PHOSPHATE 10 MG/1 ML VIAL IM ONE (18:40)
[2023-05-30] MEDS ORDERED: DEXAMETHASONE SOD PHOSPHATE 10 MG/1 ML VIAL ONE (18:46)
[2023-05-30] MEDS ORDERED: ACETAMINOPHEN 500 MG TABLET (FP) PO ONE (18:56)
[2023-05-30] MEDS ORDERED: ACETAMINOPHEN 500 MG TABLET (FP) ONE (18:57)
[2023-05-30 19:50] VITALS: BP 109/68; PULSE 99; RESP 18; TEMP 98.2
[2023-05-30] MEDS ORDERED: AMOX TR/POT CLAV 875MG/125MG TABLETS (FP) PO ONE (19:53)
[2023-05-30] MEDS ORDERED: AZITHROMYCIN 250 MG TABLET PO ONE (19:53)
[2023-05-30] MEDS ORDERED: AZITHROMYCIN 500 MG TABLET ONE (19:58)
[2023-05-30] MEDS ORDERED: AMOX TR/POT CLAV 875MG/125MG TABLETS (FP) ONE (19:58)
== END 2023-05-30 20:10 | disposition home or self-care (01) ==
LOC: JERFT 16:16
PROC: 3E023GC Introduction of Other Therapeutic Substance into Muscle, Percutaneous Approach (ICD-10-PCS; principal; 2023-05-30)
PROC: 3E0F7GC Introduction of Other Therapeutic Substance into Respiratory Tract, Via Natural or Artificial Opening (ICD-10-PCS; 2023-05-30)
DX: U07.1 COVID-19 (principal); J45.21 Mild intermittent asthma with (acute) exacerbation; J18.9 Pneumonia, unspecified organism; R05.9 Cough, unspecified; R07.9 Chest pain, unspecified; M54.9 Dorsalgia, unspecified; R51.9 Headache, unspecified
CPT/HCPCS: 0241U-QW; 71046-TC-FY; 93005; 93010; 94640; 96372; 99285-25; J1100

== ENCOUNTER 2024-03-19 17:24 | Emergency (ER) | payer OTHER ==
[2024-03-19 17:40] VITALS: BP 113/54; PULSE 94; RESP 20; TEMP 98.3; BMI 46.5
[2024-03-19] MEDS ORDERED: LIDOCAINE 5% TOPICAL PATCH ONE (18:36)
[2024-03-19] MEDS: LIDOCAINE 5% TOPICAL PATCH TP ONE (18:44)
[2024-03-19 19:03] LABS: PH,URINE 5.5 (5.0-8.0); URINE APPEARANCE CLEAR; URINE BILIRUBIN NEGATIVE (NEGATIVE); URINE COLOR YELLOW; URINE GLUCOSE (UA) NEGATIVE (NEGATIVE); URINE KETONE NEGATIVE (NEGATIVE); URINE LEUK ESTERASE NEGATIVE (NEGATIVE); URINE NITRITE NEGATIVE (NEGATIVE); URINE PROTEIN NEGATIVE (NEGATIVE); URINE UROBILINOGEN 0.2 mg/dL (0.2-1.0)
[2024-03-20] MEDS ORDERED: LIDOCAINE PATCH REMOVAL MC SCH (06:00)
== END 2024-03-19 19:38 | disposition home or self-care (01) ==
LOC: JERFT 17:24 → JER 17:24 → JERFT 19:38
DX: M54.16 Radiculopathy, lumbar region (principal)
CPT/HCPCS: 81003; 87086; 99283-25